=== PATIENT | female | born 2000 | race Two or more races ===

== ENCOUNTER 2023-12-11 20:28 | Emergency (ER) | payer MEDICAID, SELFPAY ==
[2023-12-11 20:35] VITALS: BP 102/60; PULSE 100; RESP 18; TEMP 36.8; O2SAT 98; BMI 24.5
--- NOTE | 2023-12-11 20:36 | ED.GENADULT ---
HPI - General Adult General Chief complaint: Upper Respiratory Symptoms Stated complaint: throat pain Time Seen by Provider: 12/11/23 22:49 Source: patient Mode of arrival: ambulatory Limitations: no limitations History of Present Illness HPI narrative: 23-year-old female previously healthy here with complaints of 5 days of fever with max temp of 101.1 degrees, body aches and sore throat. Patient denies cough, chest pain, shortness of breath, headache, neck pain, neck stiffness, skin rash, vomiting, diarrhea. She reports she has been taking Tylenol and Motrin as well as left over amoxicillin that she had with continued symptoms. Related Data Previous Rx's Medication Instructions Recorded amoxicillin 875 mg-potassium 1 tab PO BID #14 tabs 12/11/23 clavulanate 125 mg tablet Allergies Allergy/AdvReac Type Severity Reaction Status Date / Time No Known Allergies Allergy Verified 12/11/23 20:34 Review of Systems Review of Systems: Yes all other systems are reviewed and are negative Constitutional: Constitutional: Reports no additional constitutional complaints, Reports body ache(s), Denies chills, Reports fever(s), Denies headache(s) and Denies weakness Eyes: Eyes: Reports no additional eye complaints and Denies change in vision ENT: Reports system reviewed and no additional complaints, except as documented, Denies dizziness, Denies headache(s), Denies nasal congestion, Denies nasal discharge, Denies neck pain and Reports sore throat Cardiovascular: Cardiovascular: Reports no additional cardiovascular complaints, Denies chest pain, Denies leg edema and Denies dyspnea Respiratory: Respiratory: Reports no additional respiratory complaints, Denies cough and Denies dyspnea Gastrointestinal: Gastrointestinal: Reports no additional gastrointestinal complaints, Denies abdominal pain, Denies diarrhea, Denies nausea and Denies vomiting Genitourinary: Genitourinary: Reports no additional female genitourinary complaints and Denies urinary incontinence Musculoskeletal: Musculoskeletal: Reports no additional musculoskeletal complaints, Denies back pain, Denies arthralgias, Denies joint swelling, Denies neck pain, Denies numbness and Denies tingling Integumentary/Breasts: Skin/Breast: Reports system reviewed and no additional complaints, except as docu and Denies rash Neurologic: Reports system reviewed and no additional complaints, except as documented, Denies Abnormal speech present, Denies dizziness, Denies headache(s), Denies numbness, Denies tingling and Denies weakness PMF Past Medical History Attestation statement: The following information was validated with the patient. Source: old records reviewed and nursing notes reviewed Social History Social History Advance Directives: No Advance Directives Information Provided: No Physical Exam ED Vital Signs: Vital Signs - 24 hr 12/11/23 20:35 Temperature 98.3 F Pulse Rate 100 Respiratory Rate 18 Blood Pressure 102/60 Pulse Oximetry 98 Oxygen Delivery Method Room Air BMI result Body Mass Index 24.5 Const General: cooperative, healthy appearing, comfortable and no acute distress Orientation/consciousness: patient oriented x3 Limitations: no limitations HENMT Head: Yes normal to inspection Ears: hearing grossly normal bilaterally and TM's normal bilaterally General nose exam: Normal external nose present Face and sinus: Yes normal facial exam Mouth: Normal oral and palatal mucosa present Throat: Yes posterior oropharynx normal, Yes uvula midline and Yes abnormal tonsil (bilateral tonsillar erythema and exudate) Eyes General: appearance normal, both eyes and all related structures Pupils: Equal, round and reactive pupils present Neck Neck: Yes normal visual inspection, Yes full ROM, Yes no lymphadenopathy and Yes no meningeal signs Chest Chest palpation & inspection: normal inspection of the chest Resp Effort & Inspection: normal respiratory effort Auscultation: clear to auscultation bilaterally Cardio Rate: regular rate Rhythm: regular rhythm Peripheral pulses: Peripheral pulses 2+ throughout GI Inspection: Yes normal to inspection Palpation (GI): Soft to palpation and nontender Auscultation: normal bowel sounds Back/Spine/Pelvis Thoracic/Lumbar Spine: thoracic and lumbar spine normal to inspection Skin General skin exam: no rashes or lesions noted Neuro General: patient oriented x3, no meningeal signs, no focal motor deficits and normal sensation to monofilament Cranial nerves: Yes Equal, round and reactive pupils present Cognition (Neuro): normal cognition Speech: No Abnormal speech present Gait exam (Neuro): Normal gait present Motor exam (neuro): 5/5 motor strength present throughout Extrem General: Yes normal to inspection, Yes no pedal edema and Yes no calf tenderness Course Course Course Narrative: RME performed by Shilpa Andrade PA-C. Patient is a 23 year old assigned female at presenting to the emergency department with a sore throat and fever. Detailed physical exam and review of systems are deferred to the executive business coach. Swabs ordered. Patient placed back in the waiting room pending room availability and results. Medical Decision Making Medical Decision Making [facility] Narrative: 23 year-old female previously healthy here with complaints of 5 days of fever with max temp of 101.1 degrees, body aches and sore throat. Patient denies cough, chest pain, shortness of breath, headache, neck pain, neck stiffness, skin rash, vomiting, diarrhea. She reports she has been taking Tylenol and Motrin as well as left over amoxicillin that she had with continued symptoms. +bilateral tonsillar erythema and exudate WIll send testing for flu, covid, strep Differential Diagnosis Differential Diagnoses: The differential diagnosis associated with the presentation includes Strep pharyngitis, viral syndrome Low concern for mononucleosis, RPA, ASPARAGUS BUNCHER, ludwigs angina Admission/Observation Consideration of admission/observation: Escalation of care including admission/observation considered low concern for RPA, ASPARAGUS BUNCHER, ludwigs angina requiring advanced imaging, urgent ENT consultation Lab Data [facility] Lab Attestation statement: I reviewed the patient's lab results. Labs: Lab Results 12/11/23 Range/Units 21:08 COVID-19 (GEETHA) Negative (Negative) COVID-19 Clin Com See Note Influenza Type A (ANAYA) Negative (Negative) Influenza Type B (ANAYA) Negative (Negative) Influenza A & B Note See Note S. pyogenes GrpA ANAYA Negative (Negative) Tests considered The following testing was considered but not selected: low concern for RPA, ASPARAGUS BUNCHER, ludwigs angina requiring advanced imaging, Discharge Plan Discharge Clinical Impression: Pharyngitis Patient Disposition: Home, Self-Care Instructions: Pharyngitis (ED) Additional Instructions: Testing for COVID and flu are negative Increase fluids, rest Alternate Motrin and Tylenol for pain as needed Prescriptions: New amoxicillin-pot clavulanate 875-125 mg tablet 1 tab PO BID Qty: 14 0RF Referrals: Physician,Unknown J [Primary Care Provider] - 1 week
--- NOTE | 2023-12-11 21:12 | MHC.EDTECH ---
Patient brought into triage area,Covid,Flu,and strep swabs obtained and sent to lab,patient brought back to waiting area.
[2023-12-11 21:33] LABS: IDNOW Serial# 08D9AD1C
[2023-12-11 21:34] LABS: COVID-19 Test Negative (Negative); IDNOW Serial# 58CA691E; Strep A Nucleic Acid Negative (Negative)
[2023-12-11 21:36] LABS: IDNOW Serial# 152EDE1D; Influenza A Negative (Negative); Influenza B2 Negative (Negative)
== END 2023-12-11 23:18 | disposition home or self-care (01) ==
PROVIDERS: Physician Assistant Medical; Emergency Provider Emergency Medicine
DX: J02.9 Acute pharyngitis, unspecified (principal); R50.9 Fever, unspecified; Z11.52 Encounter for screening for COVID-19
CPT/HCPCS: 87502; 87635; 87651; 99282; 99283

== ENCOUNTER 2024-09-17 09:38 | Emergency (ER) | payer MEDICAID, SELFPAY ==
--- NOTE | ~2024-09-17 | XR_ITS ---
EXAMINATION: XR CHEST CLINICAL INFORMATION: Cough. COMPARISON: None available. TECHNIQUE: 2 views of the chest were obtained. FINDINGS: Lungs clear. No pleural effusions. Heart and pulmonary vessels normal. XR/XR chest 2V IMPRESSION: No active disease. Electronically signed by: Cade Tobias MD 09/17/2024 11:52 AM EDT
[2024-09-17 09:56] VITALS: BP 108/69; PULSE 78; RESP 16; TEMP 36.5; O2SAT 97; BMI 26.4
[2024-09-17 09:59] VITALS: BP 107/62; PULSE 80; RESP 16; TEMP 36.7; O2SAT 98
--- NOTE | 2024-09-17 10:21 | PC.NURSE ---
describes being sick x 1week. fevers at home 103.9. hacking dry cough noted. unlabroed resp. back pain d/t persistent coughing.
[2024-09-17 11:14] LABS: MANUAL DIFF FLAG NO
[2024-09-17 11:19] LABS: Basophils Absolute Auto 0.1 X10*3/uL (0.0-0.2); Basophils Percent Auto 0.6 % (0-2); Eosinophils Absolute Auto 0.5 X10*3/uL (0.0-0.4); Eosinophils Percent Auto 3.9 % (0-4); Hematocrit 39.3 % (37.0-47.0); Hemoglobin 13.1 g/dl (12.0-16.0); Imm Gran Abs Auto 0.05 X10*3/uL (0.00-0.03); Imm Gran Pct Auto 0.4 % (0.0-0.4); Lymphocytes Absolute Auto 3.2 X10*3/uL (1.2-4.9); Lymphocytes Percent Auto 25.5 % (20-40); Mean Corpuscular HGB Conc 33.3 g/dl (31.0-35.0); Mean Corpuscular Hemoglobin 29.8 pg (27.0-33.0); Mean Corpuscular Volume 89.5 fL (80.0-98.0); Mean Platelet Volume 9.4 fL (9.4-12.3); Monocytes Absolute Auto 1.5 X10*3/uL (0.1-1.2); Monocytes Percent Auto 11.8 % (2-11); Neutrophils Absolute Auto 7.3 x10*3/uL (2.0-8.3); Neutrophils Percent Auto 57.8 % (45-73); Platelet Count 235 X10*3/uL (160-400); Red Blood Count 4.39 X10*6/uL (4.20-5.50); Red Cell Distribution Width 13.2 % (11.0-16.0); White Blood Count 12.7 X10*3/uL (4.8-10.8)
[2024-09-17 11:32] LABS: Alanine Aminotransferase 22 U/L (0-31); Alkaline Phosphatase 78 U/L (39-117); Anion Gap 12 (12-20); Aspartate Amino Transferase 20 U/L (5-31); Bilirubin Total 0.2 mg/dL (0.0-1.0); Blood Urea Nitrogen 10 mg/dL (9-16); Calcium 8.9 mg/dL (8.4-10.2); Carbon Dioxide 29 mmol/L (22-29); Chloride 104 mmol/L (96-108); Creatinine Clr Calc Pharmacy 100.2; Estimated Glomerular Filt Rate > 60; Glucose Random 82 mg/dL (60-115); Potassium 3.7 mmol/L (3.3-5.1); Sodium 141 mmol/L (135-145)
[2024-09-17 11:56] LABS: Influenza A PCR NEGATIVE (Negative); Influenza B PCR NEGATIVE (Negative); Resp Syncy Virus RNA Qual PCR NEGATIVE (Negative); SARS COV2 PCR INHOUSE NEGATIVE (Negative)
[2024-09-17 12:00] VITALS: BP 109/68; PULSE 77; RESP 16; TEMP 37.1; O2SAT 97
[2024-09-17 13:15] LABS: UPreg QC Valid YES; Urine Pregnancy NEGATIVE (NEGATIVE)
[2024-09-17 13:21] LABS: Appearance Urine Clear; Color Urine Yellow; Glucose Urine UA Negative (Negative); Leukocyte Esterase Urine Negative (Negative); Nitrite Urine Negative (Negative); UMIC TRIGGER UACC YES; Urine Blood Large (3+) (Negative); Urine Ketones Negative (Negative); Urine Protein Negative (Neg-Trace)
[2024-09-17 13:22] LABS: Bacteria Urine 1+ (None Seen); Hyaline Casts Urine 0-2 /LPF (0-2); RBC Urine >20 /HPF (0-2); WBC Urine 0-5 /HPF (0-5)
--- NOTE | 2024-09-17 13:27 | ED_ITS ---
HPI - General Adult General Chief complaint: Fever Stated complaint: Fever, diarrhea, cough Time Seen by Provider: 09/17/24 11:50 Source: patient Mode of arrival: ambulatory Limitations: no limitations History of Present Illness ED Provider: DR. Frankel HPI narrative: 23-year-old female came in for evaluation for a multiple symptoms. nonproductive cough for 2 weeks, no sick contacts, no recent travel, Subjective fever, generalized body ache. Nonbloody watery diarrhea since 3-4 days ago, mild abdominal pain. No dysuria, no frequency urination, having her menstrual period now. Related Data Previous Rx's ?Medication ?Instructions ?Recorded amoxicillin 875 mg-potassium 1 tab PO BID #14 tabs 12/11/23 clavulanate 125 mg tablet albuterol sulfate 90 mcg/actuation 2 puff inhalation Q6H PRN 09/17/24 aerosol inhaler shortness of breath or wheezing #8.5 grams azithromycin 250 mg tablet See Rx Instructions PO .COMPLEX #6 09/17/24 (Zithromax Z-Gómez) tabs prednisone 20 mg tablet 20 mg PO BID #10 tabs 09/17/24 Allergies Allergy/AdvReac Type Severity Reaction Status Date / Time No Known Allergies Allergy Verified 09/17/24 09:57 Review of Systems 2 Review of Systems: All other systems are reviewed and are negative Constitutional: Reports as per HPI and Reports no additional constitutional complaints Eyes: Reports as per HPI and Reports no additional eye complaints Reports system reviewed and no additional complaints, except as documented Cardiovascular: Reports as per HPI and Reports no additional cardiovascular complaints Respiratory: Reports as per HPI and Reports no additional respiratory complaints Gastrointestinal: Reports as per HPI and Reports no additional gastrointestinal complaints Genitourinary: Reports no additional female genitourinary complaints Musculoskeletal: Reports no additional musculoskeletal complaints Skin/Breast: Reports system reviewed and no additional complaints, except as docu Psychiatric: Reports no additional psychiatric complaints Endocrine: Reports no additional endocrine complaints Hematologic/Lymphatic: Reports no additional hematologic/lymphatic complaints Allergic/Immunologic: Reports no additional allergic/immunologic complaints Reports system reviewed and no additional complaints, except as documented and Reports Abnormal speech present [facility] Social History Social History Smoked in Last 30 Days: No Use of substances other than those prescribed or required for medical reasons: No Advance Directives: No Advance Directives Information Provided: Yes Do you have a plan to hurt others: No Plan Patient : Yes Physical Exam ED Vital Signs: Vital Signs - 24 hr 09/17/24 09:56 09/17/24 09:59 09/17/24 12:00 Temperature 97.7 F 98.0 F 98.7 F Pulse Rate 78 80 77 Respiratory Rate 16 16 16 Blood Pressure 108/69 107/62 109/68 Pulse Oximetry 97 98 97 Oxygen Delivery Method Room Air Room Air Room Air BMI result Body Mass Index 26.4 Vital signs have been reviewed and appear to be correct. Blood pressure elevated. Heart rate normal. Respiratory rate normal. Temperature normal. Oxygen saturation normal. Appearance: Alert. Oriented X3. No acute distress. Head: Normal external exam. Normocephalic. Atraumatic. No Anderson signs noted. No raccoon eyes noted Eyes: PERRLA. EOMI. Conjunctiva and sclera normal. Eyelids normal. ENT: TM's Normal. Pharynx normal. Uvula midline. Moist mucous membranes. No trismus noted. No drooling noted. No muffled voice noted. Neck: Normal inspection. Neck supple. FROM. No adenopathy. Thyroid Normal. No meningeal signs. No neck mass noted. CVS: Normal heart rate and rhythm. Heart sound normal. No murmurs noted. Pulses normal throughout. Respiratory: No respiratory distress. Painless inspiration. Breath sounds normal. No wheezes/rales/rhonchi noted. Chest nontender. No accessory muscle usage noted or decreased air movement noted. Abdomen: Soft and nontender. Bowel sounds normal in all 4 quadrants. No distention noted. No organomegaly noted. No visible injury noted. Back: No CVA tenderness. Full range of motion noted. Skin: Skin warm and dry. Normal skin color. Normal skin turgor. No rashes/lesions/lacerations noted. Extremities: No lower extremity edema. Extremities exhibit normal range of motion. Extremities nontender. Neuro: Oriented X 3. Cranial nerve exam: II-XII are grossly intact No motor deficit. No sensory deficit. Reflexes normal. Course Reevaluation(s) Reevaluation #1: Coughing likely secondary to bronchitis will start the patient on short course of prednisone and bronchodilator with Z-Gómez. Nonbloody watery diarrhea, patient revealing no dehydration or electrolyte derangement. Patient feels better after IV hydration. Time: 13:35 Medical Decision Making Differential Diagnosis Differential Diagnoses: The differential diagnosis associated with the presentation includes (Pneumonia, pneumothorax, pleural effusion, viral upper respiratory infection, UTI, pyelonephritis, dehydration, electrolyte derangement, severe anemia) Admission/Observation Consideration of admission/observation: Escalation of care including admission/observation considered Lab Data MDM Lab Attestation statement: I reviewed the patient's lab results. 09/17/24 11:10 09/17/24 11:09 Labs: Lab Results 09/17/24 09/17/24 09/17/24 Range/Units 11:09 11:10 13:05 WBC 12.7 H (4.8-10.8) X10*3/uL RBC 4.39 (4.20-5.50) X10*6/uL Hgb 13.1 (12.0-16.0) g/dl Hct 39.3 (37.0-47.0) % MCV 89.5 (80.0-98.0) fL MCH 29.8 (27.0-33.0) pg MCHC 33.3 (31.0-35.0) g/dl RDW 13.2 (11.0-16.0) % Plt Count 235 (160-400) X10*3/uL MPV 9.4 (9.4-12.3) fL Immature Gran % (Auto) 0.4 (0.0-0.4) % Neut % (Auto) 57.8 (45-73) % Lymph % (Auto) 25.5 (20-40) % [place] % (Auto) 11.8 H (2-11) % Eos % (Auto) 3.9 (0-4) % Baso % (Auto) 0.6 (0-2) % Lymph # (Auto) 3.2 (1.2-4.9) X10*3/uL [place] # (Auto) 1.5 H (0.1-1.2) X10*3/uL Eos # (Auto) 0.5 H (0.0-0.4) X10*3/uL Baso # (Auto) 0.1 (0.0-0.2) X10*3/uL Abs Immat Gran (auto) 0.05 H (0.00-0.03) X10*3/uL Absolute Neuts (auto) 7.3 (2.0-8.3) x10*3/uL Absolute Nucleated RBC 0.000 (0.0-0.012) X10*3/uL Nucleated RBC % (auto) 0.0 (0.0-0.2) /100WBC Sodium 141 (135-145) mmol/L Potassium 3.7 (3.3-5.1) mmol/L Chloride 104 (96-108) mmol/L Carbon Dioxide 29 (22-29) mmol/L Anion Gap 12 (12-20) BUN 10 (9-16) mg/dL Creatinine 0.72 (0.5-1.4) mg/dL Estim Creat Clear Calc 100.2 Estimated GFR > 60 Random Glucose 82 (60-115) mg/dL Calcium 8.9 (8.4-10.2) mg/dL Total Bilirubin 0.2 (0.0-1.0) mg/dL AST 20 (5-31) U/L ALT 22 (0-31) U/L Alkaline Phosphatase 78 (39-117) U/L Total Protein 7.0 (6.5-8.0) g/dL Albumin 4.0 (3.5-5.0) g/dL Urine Color Yellow Urine Appearance Clear Urine pH 6.0 (5.0-9.0) Ur Specific [place] 1.020 (1.005-1.025) Urine Protein Negative (Neg-Trace) mg/dL Urine Glucose (UA) Negative (Negative) mg/dL Urine Ketones Negative (Negative) mg/dL Urine Blood Large (3+) H (Negative) Urine Nitrite Negative (Negative) Ur Leukocyte Esterase Negative (Negative) Urine RBC >20 H (0-2) /HPF Urine WBC 0-5 (0-5) /HPF Ur Squamous Epith Cells 11-20 (0-2) /HPF Urine Bacteria 1+ (None Seen) Hyaline Casts 0-2 (0-2) /LPF Urine Test NEGATIVE (NEGATIVE) Influenza Type A (PCR) NEGATIVE (Negative) Influenza Type B (PCR) NEGATIVE (Negative) RSV RNA Qual (PCR) NEGATIVE (Negative) SARS-CoV-2 RNA (RT-PCR) NEGATIVE (Negative) Independent Interpretation I performed an independent interpretation of an: Plain X-Ray ( chest: No acute active disease.) Radiology Impression Discussion of test interpretation with radiology: I have reviewed the radiologist's reading. Discharge Plan Discharge Clinical Impression: Viral infection, Bronchitis Patient Disposition: Home, Self-Care Instructions: Acute Bronchitis (ED) Prescriptions: New azithromycin [Zithromax Z-Gómez] 250 mg tablet See Rx Instructions .ROUTE .COMPLEX Qty: 6 0RF Rx Instructions: For 250 mg dose pack: take 500 mg today (day 1), then 250 mg for 4 days (days 2-5) prednisone 20 mg tablet 20 mg PO BID Qty: 10 0RF albuterol sulfate 90 mcg/actuation HFA aerosol inhaler 2 puff inhalation Q6H PRN (Reason: shortness of breath or wheezing) Qty: 8.5 0RF No Action amoxicillin-pot clavulanate 875-125 mg tablet 1 tab PO BID Qty: 14 0RF Print Language: Cameroonian
[2024-09-17 13:51] VITALS: BP 109/68; PULSE 77; RESP 16; TEMP 37.1; O2SAT 97
== END 2024-09-17 13:51 | disposition home or self-care (01) ==
PROVIDERS: Emergency Provider Emergency Medicine; PCP Nurse Practitioner
DX: B34.9 Viral infection, unspecified (principal); J40 Bronchitis, not specified as acute or chronic; R05.9 Cough, unspecified; R50.9 Fever, unspecified; Z03.818 Encounter for observation for suspected exposure to other biological agents ruled out
CPT/HCPCS: 0241U; 71046; 80053; 81001; 81025; 85025; 99283; 99284

== ENCOUNTER 2025-01-28 18:13 | Emergency (ER) | payer MEDICAID, SELFPAY ==
--- NOTE | 2025-01-28 18:27 | ED_ITS ---
HPI - General Adult General Chief complaint: General Medical Stated complaint: Vomiting/Flu like symptoms Time Seen by Provider: 01/28/25 23:47 Source: patient and family ( Ego) Mode of arrival: ambulatory Limitations: language barrier (Patient's 1st language however she and her speak [place] and [place] [facility] [place] History of Present Illness ED Provider: Dr. Adrian Persaud HPI narrative: 24-year-old female with no significant past medical history who presents emergency department for evaluation of abdominal pain, nausea, vomiting, sore throat, and fatigue x1 day. Patient states that she was not been able to eat or drink secondary to her nausea. She was had 2 episodes of vomiting yesterday and 1 episode of vomiting today. Patient was complaining of a sore throat. She states that she was having pain with swallowing liquids has been had no difficulty swallowing her secretions. Patient had subjective fever and chills. She denied rhinorrhea, cough, chest pain, shortness of breath, diarrhea, frequency, urgency or dysuria. She states she was having abdominal pain and points to her epigastric area. She states the pain is a pressure-like pain which is 6 to 7/10 at its worst. Related Data Previous Rx's ?Medication ?Instructions ?Recorded amoxicillin 875 mg-potassium 1 tab PO BID #14 tabs 12/11/23 clavulanate 125 mg tablet albuterol sulfate 90 mcg/actuation 2 puff inhalation Q6H PRN 09/17/24 aerosol inhaler shortness of breath or wheezing #8.5 grams azithromycin 250 mg tablet See Rx Instructions PO .COMPLEX #6 09/17/24 (Zithromax Z-Gómez) tabs prednisone 20 mg tablet 20 mg PO BID #10 tabs 09/17/24 amoxicillin 875 mg-potassium 1 tab PO Q12H 10 days #20 tabs 01/29/25 clavulanate 125 mg tablet ondansetron 4 mg disintegrating 4 mg PO Q6-8H PRN nausea and 01/29/25 tablet vomiting #14 tabs prednisone 20 mg tablet 40 mg (2 x 20 mg) PO DAILY 5 days 01/29/25 #10 tabs Allergies Allergy/AdvReac Type Severity Reaction Status Date / Time No Known Allergies Allergy Verified 01/28/25 18:29 Review of Systems 2 Review of Systems: Yes all other systems are reviewed and are negative PMFSH Past Medical History [facility] Narrative: Past surgical history: . Social history: She denies tobacco, alcohol and drug use. She was . Her is here in the emergency department with her. Social History Social History Smoked in Last 30 Days: No Use of substances other than those prescribed or required for medical reasons: No Advance Directives: No Advance Directives Information Provided: Yes Patient : No Physical Exam ED Vital Signs: Vital Signs - 24 hr 01/28/25 18:28 01/28/25 21:55 01/28/25 22:28 Temperature 99.0 F 98.6 F 98.9 F Pulse Rate 112 H 109 H 90 Respiratory Rate 16 18 18 Blood Pressure 116/71 112/65 103/62 Pulse Oximetry 98 97 96 Oxygen Delivery Method Room Air Room Air Room Air 01/28/25 22:39 01/29/25 00:10 01/29/25 01:08 Temperature 98.4 F Pulse Rate 100 90 Respiratory Rate 20 16 Blood Pressure 103/62 85/50 L 90/60 Pulse Oximetry 97 98 Oxygen Delivery Method Room Air Room Air Room Air BMI result Body Mass Index 21.5 Vital signs revealed an elevated heart rate otherwise unremarkable Exam: General: Awake, alert in no distress Head: Normocephalic, atraumatic EENT: PERRL, Lids normal, sclera normal, conjunctiva normal, nose normal , ears normal, throat moist membranes, bilateral exudates with bilateral erythema, uvula is midline, no trismus Neck: Supple, jugular digastric and posterior adenopathy which was tender to palpation Lung: breath sounds symmetric, no wheezing, rales or rhonchi Chest: symmetric movement, nontender Heart: regular rate and rhythm, normal S1, S2 no murmurs or rubs Abdomen: soft, moderate epigastric tenderness, nondistended, normal bowel sounds Back: no vertebral tenderness, no CVAT Extremities: no deformities, moves all extremities symmetrically Neuro: Awake, alert, oriented, normal speech, cranial nerves intact, moves all extremities symmetrically Psych: Pleasant, cooperative Course Course Course Narrative: RME, this is a rapid medical exam performed by Filemon Browning please refer to primary provider for complete H&P- 24-year-old female presents for evaluation fevers, chills, vomiting started 2 days ago. Plan for labs, testing and viral swabs. Medications Administered Discontinued Medications Generic Name Dose Route Start Last Admin Trade Name Cynthia PRN Reason Stop Dose Admin Ceftriaxone Sodium 1 gm 01/29/25 01:01 01/29/25 01:08 Ceftriaxone Sodium 1 Gm Vial IVPUSH 01/29/25 01:02 1 gm ONCE ONE Administration Sodium Chloride 1,000 mls @ 999 mls/hr 01/29/25 00:02 01/29/25 00:09 Ns IV 01/29/25 01:02 999 mls/hr .Q1H1M STA Administration Ketorolac Tromethamine 15 mg 01/29/25 00:02 01/29/25 00:12 Ketorolac Tromethamine 15 Mg/Ml Vial IVPUSH 01/29/25 00:03 15 mg ONCE STA Administration Methylprednisolone Sodium Succinate 60 mg 01/29/25 01:01 01/29/25 01:08 Methylprednisolone Sod Succ 125 Mg/2 Ml Vial IVPUSH 01/29/25 01:02 60 mg ONCE ONE Administration Morphine Sulfate 4 mg 01/29/25 01:11 01/29/25 01:20 Morphine Sulfate 4 Mg/Ml Cartridge IVPUSH 01/29/25 01:12 Not Given ONCE STA Protocol Ondansetron HCl 4 mg 01/29/25 00:02 01/29/25 00:12 Ondansetron Hcl 4 Mg/2 Ml Vial IVPUSH 01/29/25 00:03 4 mg ONCE ONE Administration Medical Decision Making Medical Decision Making MDM Narrative: 24-year-old female with no significant past medical history who presents emergency department for evaluation of abdominal pain, nausea, vomiting, sore throat, and fatigue x1 day. Patient states that she was not been able to eat or drink secondary to her nausea. She was had 2 episodes of vomiting yesterday and 1 episode of vomiting today. Patient was complaining of a sore throat. She states that she was having pain with swallowing liquids has been had no difficulty swallowing her secretions. Patient had subjective fever and chills. She denied rhinorrhea, cough, chest pain, shortness of breath, diarrhea, frequency, urgency or dysuria. She states she was having abdominal pain and points to her epigastric area. She states the pain is a pressure-like pain which is 6 to 7/10 at its worst. Vital signs revealed an elevated heart rate otherwise unremarkable. Throat exam revealed bilateral exudates with erythema, no trismus and uvula was midline. Abdominal exam revealed epigastric tenderness. Differential diagnosis: ?Includes but is not limited to viral syndrome, strep pharyngitis, viral pharyngitis, mononucleosis, COVID-19, influenza, RSV, anemia, electrolyte abnormalities Course: 12:08 My independent interpretation patient's laboratory evaluation as follows: WBC elevated 14,700 with 77 neutrophils elevated, 10 lymphocytes, 11 monocytes elevated. Glucose was elevated 116. LFTs were normal. Lipase was normal. Quantitative beta-hCG was below detectable limits. Urinalysis was positive for blood and leukocyte esterase. Microscopic revealed greater than 20 RBCs, 0-5 WBCs, 6-10 squamous cells, no bacteria. COVID-19, influenza, RSV were negative. Rapid strep test was negative Patient was treated with Zofran 4 mg IV, Toradol 15 mg IV and normal saline x1 L IV. 01:26 The patient was mono spot was negative. The patient was pain did improve significantly with the above treatment. At this time I am concerned that the patient may have a bacterial pharyngitis therefore she was given ceftriaxone 1 g IV and Solu-Medrol 60 mg IV. Patient will be discharged home with a prescription for Augmentin 875/125, 1 pill every 12 hours for 10 days. She was also given prescription for Zofran 4 mg ODT Q 6-8 hours as needed for nausea and vomiting. She was advised to take Tylenol for pain. She was given printed and verbal instructions and discharged home. Admission/Observation Consideration of admission/observation: Escalation of care including admission/observation considered (Yes) Lab Data [facility] Lab Attestation statement: I reviewed the patient's lab results. 01/28/25 18:42 01/28/25 18:42 Labs: Lab Results 01/28/25 01/28/25 01/28/25 Range/Units 18:42 22:01 22:06 WBC 14.7 H (4.8-10.8) X10*3/uL RBC 4.34 (4.20-5.50) X10*6/uL Hgb 13.0 (12.0-16.0) g/dl Hct 38.7 (37.0-47.0) % MCV 89.2 (80.0-98.0) fL MCH 30.0 (27.0-33.0) pg MCHC 33.6 (31.0-35.0) g/dl RDW 13.1 (11.0-16.0) % Plt Count 214 (160-400) X10*3/uL MPV 9.6 (9.4-12.3) fL Immature Gran % (Auto) 0.5 H (0.0-0.4) % Neut % (Auto) 77.8 H (45-73) % Lymph % (Auto) 10.2 L (20-40) % [place] % (Auto) 11.1 H (2-11) % Eos % (Auto) 0.1 (0-4) % Baso % (Auto) 0.3 (0-2) % Lymph # (Auto) 1.5 (1.2-4.9) X10*3/uL [place] # (Auto) 1.6 H (0.1-1.2) X10*3/uL Eos # (Auto) 0.0 (0.0-0.4) X10*3/uL Baso # (Auto) 0.0 (0.0-0.2) X10*3/uL Abs Immat Gran (auto) 0.07 H (0.00-0.03) X10*3/uL Absolute Neuts (auto) 11.5 H (2.0-8.3) x10*3/uL Absolute Nucleated RBC 0.000 (0.0-0.012) X10*3/uL Nucleated RBC % (auto) 0.0 (0.0-0.2) /100WBC Smear Tech's Comments VERIFIED Sodium 137 (135-145) mmol/L Potassium 4.1 (3.3-5.1) mmol/L Chloride 107 (96-108) mmol/L Carbon Dioxide 25 (22-29) mmol/L Anion Gap 9 L (12-20) BUN 7 L (9-16) mg/dL Creatinine 0.73 (0.5-1.4) mg/dL Estim Creat Clear Calc 112.2 Estimated GFR > 60 Random Glucose 116 H (60-115) mg/dL Calcium 9.8 D (8.4-10.2) mg/dL Total Bilirubin 0.4 (0.0-1.0) mg/dL AST 20 (5-31) U/L ALT 15 (0-31) U/L Alkaline Phosphatase 76 (39-117) U/L Total Protein 8.4 H (6.5-8.0) g/dL Albumin 4.3 (3.5-5.0) g/dL Lipase 7 L (8-78) U/L Beta HCG, Quant < 2 mIU/mL Urine Color Yellow Urine Appearance Clear Urine pH 7.0 (5.0-9.0) Ur Specific [place] <= 1.005 (1.005-1.025) Urine Protein Trace (Neg-Trace) mg/dL Urine Glucose (UA) Negative (Negative) mg/dL Urine Ketones 15 (Negative) mg/dL Urine Blood Large (3+) H (Negative) Urine Nitrite Negative (Negative) Ur Leukocyte Esterase Trace H (Negative) Urine RBC >20 H (0-2) /HPF Urine WBC 0-5 (0-5) /HPF Ur Squamous Epith Cells 6-10 (0-2) /HPF Urine Bacteria None Seen (None Seen) Hyaline Casts 0-2 (0-2) /LPF Monoscreen (Negative) Influenza Type A (PCR) NEGATIVE (Negative) Influenza Type B (PCR) NEGATIVE (Negative) RSV RNA Qual (PCR) NEGATIVE (Negative) SARS-CoV-2 RNA (RT-PCR) NEGATIVE (Negative) S. pyogenes GrpA ANAYA Negative (Negative) 01/29/25 Range/Units 00:23 WBC (4.8-10.8) X10*3/uL RBC (4.20-5.50) X10*6/uL Hgb (12.0-16.0) g/dl Hct (37.0-47.0) % MCV (80.0-98.0) fL MCH (27.0-33.0) pg MCHC (31.0-35.0) g/dl RDW (11.0-16.0) % Plt Count (160-400) X10*3/uL MPV (9.4-12.3) fL Immature Gran % (Auto) (0.0-0.4) % Neut % (Auto) (45-73) % Lymph % (Auto) (20-40) % [place] % (Auto) (2-11) % Eos % (Auto) (0-4) % Baso % (Auto) (0-2) % Lymph # (Auto) (1.2-4.9) X10*3/uL [place] # (Auto) (0.1-1.2) X10*3/uL Eos # (Auto) (0.0-0.4) X10*3/uL Baso # (Auto) (0.0-0.2) X10*3/uL Abs Immat Gran (auto) (0.00-0.03) X10*3/uL Absolute Neuts (auto) (2.0-8.3) x10*3/uL Absolute Nucleated RBC (0.0-0.012) X10*3/uL Nucleated RBC % (auto) (0.0-0.2) /100WBC Smear Tech's Comments Sodium (135-145) mmol/L Potassium (3.3-5.1) mmol/L Chloride (96-108) mmol/L Carbon Dioxide (22-29) mmol/L Anion Gap (12-20) BUN (9-16) mg/dL Creatinine (0.5-1.4) mg/dL Estim Creat Clear Calc Estimated GFR Random Glucose (60-115) mg/dL Calcium (8.4-10.2) mg/dL Total Bilirubin (0.0-1.0) mg/dL AST (5-31) U/L ALT (0-31) U/L Alkaline Phosphatase (39-117) U/L Total Protein (6.5-8.0) g/dL Albumin (3.5-5.0) g/dL Lipase (8-78) U/L Beta HCG, Quant mIU/mL Urine Color Urine Appearance Urine pH (5.0-9.0) Ur Specific [place] (1.005-1.025) Urine Protein (Neg-Trace) mg/dL Urine Glucose (UA) (Negative) mg/dL Urine Ketones (Negative) mg/dL Urine Blood (Negative) Urine Nitrite (Negative) Ur Leukocyte Esterase (Negative) Urine RBC (0-2) /HPF Urine WBC (0-5) /HPF Ur Squamous Epith Cells (0-2) /HPF Urine Bacteria (None Seen) Hyaline Casts (0-2) /LPF Monoscreen Negative (Negative) Influenza Type A (PCR) (Negative) Influenza Type B (PCR) (Negative) RSV RNA Qual (PCR) (Negative) SARS-CoV-2 RNA (RT-PCR) (Negative) S. pyogenes GrpA ANAYA (Negative) Independent Historian Clinical information obtained from an independent historian. History obtained from or confirmed by: Spouse Prescription Management I considered prescription management with: Antibiotic (Augmentin 875/125) and Other (Antiemetic, Zofran ODT) Discharge Plan Discharge Clinical Impression: Acute bacterial pharyngitis Abdominal pain Qualifiers: Abdominal location: epigastric Qualified Code(s): R10.13 - Epigastric pain Nausea & vomiting Qualifiers: Vomiting type: unspecified Qualified Code(s): R11.2 - Nausea with vomiting, unspecified Patient Disposition: Home, Self-Care Instructions: Pharyngitis (ED) Additional Instructions: Your blood work revealed an elevated white blood cell count otherwise was unremarkable. Your COVID-19, influenza and RSV tests were negative. Your rapid strep test was negative for strep throat. Your mono test for mononucleosis was negative as well. At this time, I am concerned that you have a bacterial throat infection. You received ceftriaxone 1 g IV, this is an antibiotic that will last for 24 hours. Take Augmentin (amoxicillin/clavulanic acid) 875 mg/125 mg, 1 pill every 12 hours for 10 days. You were also treated with Solu-Medrol 60 mg IV, this is a steroid and this will also last for 24 hours and with the help reduce the pain and inflammation in the back of your throat. Take prednisone 20 mg pills, 3 pills once a day for 5 days. This is an oral anti-inflammatory steroid and should help reduce the inflammation in the back of your throat. While you ?are taking prednisone, do not take any NSAIDs (Motrin, Advil, ibuprofen, Aleve, naproxen). You can take Tylenol (acetaminophen) 500 mg pills, 2 pills every 6 hours as needed for pain or fever. Take Zofran ODT 4 mg pills, 1 pill dissolved in your mouth every 8 hours as needed for nausea and vomiting. For the next 24 hours, stay on a FORD diet (bananas, rice, applesauce, tea and toast). Follow-up with your doctor in 2 days. Please return to the emergency department if your symptoms get worse or if you develop any symptoms that are concerning to you. Prescriptions: New amoxicillin-pot clavulanate 875-125 mg tablet 1 tab PO Q12H 10 Days Qty: 20 0RF prednisone 20 mg tablet 40 mg PO DAILY 5 Days Qty: 10 0RF ondansetron 4 mg tablet,disintegrating 4 mg PO Q6-8H PRN (Reason: nausea and vomiting) Qty: 14 0RF No Action amoxicillin-pot clavulanate 875-125 mg tablet 1 tab PO BID Qty: 14 0RF azithromycin [Zithromax Z-Gómez] 250 mg tablet See Rx Instructions .ROUTE .COMPLEX Qty: 6 0RF Rx Instructions: For 250 mg dose pack: take 500 mg today (day 1), then 250 mg for 4 days (days 2-5) prednisone 20 mg tablet 20 mg PO BID Qty: 10 0RF albuterol sulfate 90 mcg/actuation HFA aerosol inhaler 2 puff inhalation Q6H PRN (Reason: shortness of breath or wheezing) Qty: 8.5 0RF Print Language: [place]
[2025-01-28 18:28] VITALS: BP 116/71; PULSE 112; RESP 16; TEMP 37.2; O2SAT 98; BMI 21.5
[2025-01-28 18:59] LABS: Basophils Percent Auto 0.3 % (0-2); Eosinophils Percent Auto 0.1 % (0-4); Hematocrit 38.7 % (37.0-47.0); Imm Gran Abs Auto 0.07 X10*3/uL (0.00-0.03); Imm Gran Pct Auto 0.5 % (0.0-0.4); Lymphocytes Absolute Auto 1.5 X10*3/uL (1.2-4.9); Lymphocytes Percent Auto 10.2 % (20-40); MANUAL DIFF FLAG SCAN; Mean Corpuscular HGB Conc 33.6 g/dl (31.0-35.0); Mean Corpuscular Volume 89.2 fL (80.0-98.0); Mean Platelet Volume 9.6 fL (9.4-12.3); Monocytes Absolute Auto 1.6 X10*3/uL (0.1-1.2); Monocytes Percent Auto 11.1 % (2-11); Neutrophils Absolute Auto 11.5 x10*3/uL (2.0-8.3); Neutrophils Percent Auto 77.8 % (45-73); Platelet Count 214 X10*3/uL (160-400); Red Blood Count 4.34 X10*6/uL (4.20-5.50); Red Cell Distribution Width 13.1 % (11.0-16.0); SCAN SMEAR FLAG 1; White Blood Count 14.7 X10*3/uL (4.8-10.8)
[2025-01-28 19:12] LABS: Alanine Aminotransferase 15 U/L (0-31); Albumin Level 4.3 g/dL (3.5-5.0); Alkaline Phosphatase 76 U/L (39-117); Anion Gap 9 (12-20); Aspartate Amino Transferase 20 U/L (5-31); Bilirubin Total 0.4 mg/dL (0.0-1.0); Blood Urea Nitrogen 7 mg/dL (9-16); Calcium 9.8 mg/dL (8.4-10.2); Carbon Dioxide 25 mmol/L (22-29); Chloride 107 mmol/L (96-108); Creatinine Clr Calc Pharmacy 112.2; Estimated Glomerular Filt Rate > 60; Glucose Random 116 mg/dL (60-115); HCG Quantitative < 2 mIU/mL; Lipase 7 U/L (8-78); Potassium 4.1 mmol/L (3.3-5.1); Sodium 137 mmol/L (135-145); Total Protein 8.4 g/dL (6.5-8.0)
[2025-01-28 19:38] LABS: Influenza A PCR NEGATIVE (Negative); Influenza B PCR NEGATIVE (Negative); Resp Syncy Virus RNA Qual PCR NEGATIVE (Negative); SARS COV2 PCR INHOUSE NEGATIVE (Negative); SLIDE REVIEW VERIFIED
[2025-01-28 21:55] VITALS: BP 112/65; PULSE 109; RESP 18; TEMP 37; O2SAT 97
[2025-01-28 22:13] LABS: Appearance Urine Clear; Color Urine Yellow; Glucose Urine UA Negative (Negative); Leukocyte Esterase Urine Trace (Negative); Nitrite Urine Negative (Negative); Specific Gravity - Urine <= 1.005 (1.005-1.025); UMIC TRIGGER UACC YES; Urine Blood Large (3+) (Negative); Urine Ketones 15 mg/dL (Negative); Urine Protein Trace mg/dL (Neg-Trace)
[2025-01-28 22:18] LABS: Bacteria Urine None Seen (None Seen); Hyaline Casts Urine 0-2 /LPF (0-2); RBC Urine >20 /HPF (0-2); WBC Urine 0-5 /HPF (0-5)
[2025-01-28 22:28] VITALS: BP 103/62; PULSE 90; RESP 18; TEMP 37.2; O2SAT 96
[2025-01-28 22:39] VITALS: BP 103/62; PULSE 100; RESP 20; O2SAT 97
[2025-01-28 22:45] LABS: IDNOW Serial# 6674DD1D; Strep A Nucleic Acid Negative (Negative)
[2025-01-29] MEDS: 0.9 % Sodium Chloride 1,000 ML 999 ML IV (00:09)
[2025-01-29 00:10] VITALS: BP 85/50; PULSE 90; RESP 16; TEMP 36.9; O2SAT 98
[2025-01-29] MEDS: Ketorolac Tromethamine 15 MG/ML VIAL IVPUSH (00:12)
[2025-01-29] MEDS: ondansetron HCL 4 MG/2 ML VIAL IVPUSH (00:12)
[2025-01-29 00:53] LABS: Monotest Negative (Negative)
[2025-01-29 01:08] VITALS: BP 90/60
[2025-01-29] MEDS: cefTRIAXone sodium 1 GM VIAL IVPUSH (01:08)
[2025-01-29] MEDS: methylPREDNISolone Sod Succ 125 MG/2 ML VIAL 60 MG IVPUSH (01:08)
[2025-01-29 01:48] VITALS: BP 102/66; PULSE 88; RESP 15; TEMP 36.9; O2SAT 97; O2SAT 98
== END 2025-01-29 01:50 | disposition home or self-care (01) ==
PROVIDERS: Physician Assistant; Emergency Provider Emergency Medicine Emergency Medical Services; PCP Nurse Practitioner
DX: J02.8 Acute pharyngitis due to other specified organisms (principal); R10.13 Epigastric pain; R11.2 Nausea with vomiting, unspecified; Z03.818 Encounter for observation for suspected exposure to other biological agents ruled out
CPT/HCPCS: 0241U; 36415; 80053; 81001; 83690; 84702; 85025; 86308; 87651; 96361; 96374; 96375; 99284; 99285; J0696; J1885; J2405; J2919

== ENCOUNTER 2025-05-30 18:46 | Emergency (ER) | payer MEDICAID, OTHER, SELFPAY ==
--- NOTE | ~2025-05-30 | CT_ITS ---
CLINICAL HISTORY: RLQ pain CT abdomen and pelvis with contrast Comparison: CT - CT ABDOMEN PELVIS W IV CON - 05/31/25 00:08 EDT Findings: The lung bases are clear. Heart size is normal. No pericardial effusion. Spleen is normal. Hepatic parenchyma is normal. Stomach is normal. Pancreas is normal. Gallbladder is incompletely distended. Adrenal glands are normal. The left kidney is normal. No left renal lithiasis or ureterolithiasis. The right kidney enhances normally. No obstructing renal lithiasis. There is right proximal hydroureter without ureteral lithiasis. No abnormal calcifications or stones at the ureterovesicular junction. Bladder is partially distended. Small bowel is normal. Moderate stool burden in the cecum ascending, and sigmoid colon. The retrocecal and right pelvic appendix is normal. Scattered sigmoid diverticuli without evidence of diverticulitis. Pelvic contents are unremarkable. Prominent parametrial vessels are present. The bones are intact. IMPRESSION: No acute findings. Mild [id number]-left proximal hydroureter without evidence for obstructing ureteral lithiasis. This document has been electronically signed by: Savage Mckeon III, MD PHD on 05/31/2025 02:42:46
--- NOTE | ~2025-05-30 | US_ITS ---
CLINICAL HISTORY: R sided lower abdominal pain, HX of ovarian cysts, --- Additional Notes or Special Instructions: sudden onset of stabbing r sided abd pain, vaginal bleeding. US pelvis transvaginal and transabdominal Indication: Right-sided lower abdominal pain, ovarian cysts, LMP 2 weeks ago, sudden onset right-sided abdominal pain, vaginal bleeding Comparison: None provided Findings: Transabdominal and transvaginal scanning performed. Anteverted uterus measures 8 cm x 3.2 x 4.7 cm. Myometrium is normal. Endometrial thickness measures 0.6 cm. Cervix appears normal. Right ovary measures 3.7 x 1.5 x 1.9 cm. Left ovary measures 3.6 x 2.0 x 3.2 cm. There is a dominant follicle measuring 2.0 cm. No free fluid is demonstrated. Bilateral arterial and venous flow is demonstrated within the ovaries. Normal color Doppler of both ovaries. IMPRESSION: 1. Normal pelvic ultrasound 2. No evidence of ovarian torsion. This document has been electronically signed by: Savage Mckeon III, MD PHD on 05/30/2025 23:19:04
[2025-05-30 19:01] VITALS: BP 113/71; PULSE 67; RESP 16; TEMP 37.1; O2SAT 98; BMI 26.7
--- NOTE | 2025-05-30 19:01 | ED_ITS ---
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 patient states stabbing lower abdominal pain is constant and has been progressing over the last 3 days. She states she has noticed small volume of bright red blood on toilet tissue after urination over this past week. Patient states LMP was 2 weeks ago, patient has implant for contraception, is with a monogamous partner and is not concerned for STIs. Patient reports she saw her PCP yesterday who encouraged her to come to the ED for further evaluation, as patient had right- sided ovarian cysts found during her . Denies chest pain, shortness of breath, bloody/bilious vomiting, black or bloody stool, urinary symptoms. MD complaint: RLQ abdominal pain Onset (ago): week(s) (1) Quality: stabbing Pain Consistency: constant Relieving factors: none Exacerbating factors: movement Associated symptoms: nausea/vomiting Treatments prior to arrival: none Related Data Previous Rx's ?Medication ?Instructions ?Recorded amoxicillin 875 mg-potassium 1 tab PO BID #14 tabs clavulanate 125 mg tablet albuterol sulfate 90 mcg/actuation 2 puff inhalation Q 6H PRN 09/17/24 aerosol inhaler shortness of breath or wheez ing #8.5 grams azithromycin 250 mg tablet See Rx Instructions PO .COM PLEX #6 09/17/24 (Zithromax Z-Gómez) tabs prednisone 20 mg tablet 20 mg PO BID #10 tabs amoxicillin 875 mg-potassium 1 tab PO Q12H 10 days #20 tabs 01/29/25 clavulanate 125 mg tablet ondansetron 4 mg disintegrating 4 mg PO Q6-8H PRN naus ea and 01/29/25 tablet vomiting #14 tabs prednisone 20 mg tablet 40 mg (2 x 20 mg) PO DAILY 5 days 01/29/25 #10 tabs ketorolac 10 mg tablet 10 mg PO Q6H PRN pain 5 days #20 05/31/25 tabs tamsulosin 0.4 mg capsule 0.4 mg PO BEDTIME 7 days #7 caps 05/31/25 metronidazole 500 mg tablet 500 mg PO BID 7 days #14 t abs 06/02/25 Allergies Allergy/AdvReac Type Severity Reaction Status Date / Time No Known Allergies Allergy Verified 05/30/25 19:01 Review of Systems 2 Review of Systems: CONST: Negative for fever, body aches and chills. HENT: Negative for neck pain/stiffness, headache, congestion, sore throat, swelling. EYES: Negative for discharge/pain or vision changes. RESP: Negative for cough/hemoptysis and shortness of breath. CV: Negative chest pain, difficulty breathing, palpitations. ABD: POS RLQ pain, nausea, 2 episdoes of vomiting : Negative increase frequency, dysuria, blood in urine or stool. MUSC: Negative for muscle aches, edema. SKIN: Negative rash, lesions/sores. NEURO: Negative headache, dizziness, weakness. Yes all other systems are reviewed and are negative PMFSH Past Medical History Attestation statement: The following information was validated with the patient. Source: old records reviewed and nursing notes reviewed Physical Exam ED Vital Signs: Vital Signs - 24 hr 05/30/25 19:01 05/30/25 22:02 05/31/25 02:19 Temperature 98.7 F 97.9 F 97.8 F Pulse Rate 67 77 61 Respiratory Rate 16 18 Blood Pressure 113/71 104/64 106/60 Pulse Oximetry 98 100 98 Oxygen Delivery Method Room Air Room Air Room Air BMI result Body Mass Index 26.7 GENERAL APPEARANCE: ?AxOx4, uncomfortable appearing, no acute distress. HEENT: ?NC, AT. MMM. EOMI, clear conjunctiva, oropharynx clear. NECK: ?Supple without lymphadenopathy.? No stiffness or restricted ROM. HEART:? Normal rate and regular rhythm, normal S1/S1, no m/r/g LUNGS:? CTAB, moving air well. No crackles or wheezes are heard. ABDOMEN: soft, no rigidity, moderate tenderness over right adnexal area, negative Zuniga's sign, no rebound tenderness : External genitalia without lesions, or abnormalites. Vaginal vault without mylene blood, cervical os withot clots, blood, or purulent discharge, no CMT. Moderate TTP over R adnexal region, no masses palpated. No uterine abnormalities palpated. BACK: No CVAT, no obvious deformity. EXTREMITIES: ?Without cyanosis, clubbing or edema. NEUROLOGICAL: ?Grossly nonfocal. Alert and oriented, moving all 4 extremities. Observed to ambulate with normal gait. Skin: ?Warm and dry without any rash. Course Course Course Narrative: RME, this is a rapid medical exam performed by Filemon Browning please refer to primary provider for complete H&P- 24 year old female presents for evaluation of lower abdominal pain for the last week. She has also noticed some vaginal bleeding. Denies burning with urination. Plan for labs, and a UA Reevaluation(s) Reevaluation #1: 06/02/25 0918 [place] patient tested negative for gonorrhea, chlamydia, Trichomonas. Positive for bacterial vaginosis. Called and spoke with patient regarding results. Flagyl sent to pharmacy for treatment. Medications Administered Discontinued Medications Generic Name Dose Route Start Last Admin Trade Name Kobeq PRN Reason Stop Dose Admin Iohexol 85 ml 05/31/25 00:25 05/31/25 00:25 Iohexol 350 Mg/Ml 100 Ml Infus..Btl IV 05/31/25 00:26 85 ml ONCE ONE Administration Ketorolac Tromethamine 30 mg 05/31/25 03:06 05/31/25 03:19 Ketorolac Tromethamine 30 Mg/Ml Vial IM 05/31/25 03:07 30 mg ONCE ONE Administration Medical Decision Making Medical Decision Making [facility] Narrative: 24-year-old female without significant medical history presents to the ED due to 1 week of sudden onset stabbing lower abdominal pain. patient states stabbing lower abdominal pain is constant and has been progressing over the last 3 days. She states she has noticed small volume of bright red blood on toilet tissue after urination over this past week. Patient states LMP was 2 weeks ago, patient has implant for contraception, is with a monogamous partner and is not concerned for STIs. Patient reports she saw her PCP yesterday who encouraged her to come to the ED for further evaluation, as patient had right- sided ovarian cysts found during her . VSS, patient is uncomfortable appearing in hospital bed, nontoxic appearing. Labs revealed leukocytosis at 11.1, H&H stable- 12.0/34.8, HCG negative, patient with Nexplanon implant in place, LMP 2 weeks ago- less likely ectopic . UA revealed 1+ urine blood, 6-10 urine RBCs HPF- will obtain transvaginal ultrasound to evaluate for ovarian torsion / ovarian cysts. Course 00:03- Transvaginal ultrasound negative for torsion or ovarian cyst. Vaginal exam does not reveal mylene blood within the vaginal vault or cervical os, no CMT. No CVA tenderness on percussion, but patient states she is uncomfortable around R flank area CT abd/pelvis W/contrast to evaluate for acute abdomen. 03:10- CT abdomen pelvis reveals right proximal hydroureter without ureteral lithiasis, no stones visualized at the UVJ. Patient medicated with 30 mg IM Toradol for pain relief. Patient will be sent home with a week of tamsulosin, and 3 days of Toradol to manage pain. Patient counseled to follow up with her primary care physician, and strict return precautions. Differential Diagnosis Differential Diagnoses: The differential diagnosis associated with the presentation includes Ovarian torsion Ovarian cysts Ruptured ovarian cyst Ectopic Renal stone Admission/Observation Consideration of admission/observation: Escalation of care including admission/observation considered Lab Data MDM Lab Attestation statement: I reviewed the patient's lab results. 05/30/25 19:23 05/30/25 19:23 Labs: Lab Results 05/30/25 05/31/25 Range/Units 19:23 00:00 WBC 11.1 H (4.8-10.8) X10*3/uL RBC 4.04 L (4.20-5.50) X10*6/uL Hgb 12.0 (12.0-16.0) g/dl Hct 34.8 L (37.0-47.0) % MCV 86.1 (80.0-98.0) fL MCH 29.7 (27.0-33.0) pg MCHC 34.5 (31.0-35.0) g/dl RDW 12.5 (11.0-16.0) % Plt Count 266 (160-400) X10*3/uL MPV 9.5 (9.4-12.3) fL Immature Gran % (Auto) 0.3 (0.0-0.4) % Neut % (Auto) 53.1 (45-73) % Lymph % (Auto) 38.0 (20-40) % [place] % (Auto) 6.6 (2-11) % Eos % (Auto) 1.2 (0-4) % Baso % (Auto) 0.8 (0-2) % Lymph # (Auto) 4.2 (1.2-4.9) X10*3/uL [place] # (Auto) 0.7 (0.1-1.2) X10*3/uL Eos # (Auto) 0.1 (0.0-0.4) X10*3/uL Baso # (Auto) 0.1 (0.0-0.2) X10*3/uL Abs Immat Gran (auto) 0.03 (0.00-0.03) X10*3/uL Absolute Neuts (auto) 5.9 (2.0-8.3) x10*3/uL Absolute Nucleated RBC 0.000 (0.0-0.012) X10*3/uL Nucleated RBC % (auto) 0.0 (0.0-0.2) /100WBC Sodium 138 (135-145) mmol/L Potassium 3.7 (3.3-5.1) mmol/L Chloride 105 (96-108) mmol/L Carbon Dioxide 26 (22-29) mmol/L Anion Gap 11 L (12-20) BUN 11 (9-16) mg/dL Creatinine 0.83 (0.5-1.4) mg/dL Estim Creat Clear Calc 86.7 Estimated GFR > 60 Random Glucose 92 (60-115) mg/dL Calcium 9.0 D (8.4-10.2) mg/dL Total Bilirubin 0.1 (0.0-1.0) mg/dL AST 19 (5-31) U/L ALT 17 (0-31) U/L Alkaline Phosphatase 80 (39-117) U/L Total Protein 7.6 (6.5-8.0) g/dL Albumin 4.5 (3.5-5.0) g/dL Lipase 13 (8-78) U/L Beta HCG, Quant < 2 mIU/mL Urine Color Yellow Urine Appearance Clear Urine pH 8.0 (5.0-9.0) Ur Specific [place] 1.010 (1.005-1.025) Urine Protein Trace (Neg-Trace) mg/dL Urine Glucose (UA) Negative (Negative) mg/dL Urine Ketones Negative (Negative) mg/dL Urine Blood Small (1+) H (Negative) Urine Nitrite Negative (Negative) Ur Leukocyte Esterase Negative (Negative) Urine RBC 6-10 H (0-2) /HPF Urine WBC 0-5 (0-5) /HPF Ur Squamous Epith Cells 0-2 (0-2) /HPF Urine Bacteria None Seen (None Seen) Hyaline Casts 0-2 (0-2) /LPF Chlam trachomat DNA PCR NOT DETECTED (Not Detect.) N.gonorrhoeae DNA (PCR) NOT DETECTED (Not Detect.) T. vaginalis (PCR) NOT DETECTED (Not Detect) Bact vaginosis (PCR) POSITIVE A (Negative) C. krusei/glabrata (PCR) NOT DETECTED (Not Detect) Veronika group (PCR) NOT DETECTED (Not Detect) T. vaginalis Amp RNA Cancelled Independent Interpretation I performed an independent interpretation of an: Ultrasound Interpretation: I independently interpreted the ultrasound and agree with the radiologist's findings Radiology Impression Discussion of test interpretation with radiology: I have reviewed the radiologist's reading. Radiologist Impression: Transvaginal US Findings: Transabdominal and transvaginal scanning performed. Anteverted uterus measures 8 cm x 3.2 x 4.7 cm. Myometrium is normal. Endometrial thickness measures 0.6 cm. Cervix appears normal. Right ovary measures 3.7 x 1.5 x 1.9 cm. Left ovary measures 3.6 x 2.0 x 3.2 cm. There is a dominant follicle measuring 2.0 cm. No free fluid is demonstrated. Bilateral arterial and venous flow is demonstrated within the ovaries. Normal color Doppler of both ovaries. IMPRESSION: 1. Normal pelvic ultrasound 2. No evidence of ovarian torsion. This document has been electronically signed by: Savage Mckeon III, MD PHD on 05/30/2025 23:19:04 Dictated By: Savage Mckeon MD Signed By: <Electronically signed by Savage Mckeon MD in OV> 05/30/[address] abdomen/pelvis Findings: The lung bases are clear. Heart size is normal. No pericardial effusion. Spleen is normal. Hepatic parenchyma is normal. Stomach is normal. Pancreas is normal. Gallbladder is incompletely distended. Adrenal glands are normal. The left kidney is normal. No left renal lithiasis or ureterolithiasis. The right kidney enhances normally. No obstructing renal lithiasis. There is right proximal hydroureter without ureteral lithiasis. No abnormal calcifications or stones at the ureterovesicular junction. Bladder is partially distended. Small bowel is normal. Moderate stool burden in the cecum ascending, and sigmoid colon. The retrocecal and right pelvic appendix is normal. Scattered sigmoid diverticuli without evidence of diverticulitis. Pelvic contents are unremarkable. Prominent parametrial vessels are present. The bones are intact. IMPRESSION: No acute findings. Mild pjafr-[id number]-vbnk-left proximal hydroureter without evidence for obstructing ureteral lithiasis. This document has been electronically signed by: Savage Mckeon III, MD PHD on 05/31/2025 02:42:46 Dictated By: Savage Mckeon MD Signed By: <Electronically signed by Savage Mckeon MD in OV> 05/31/25 0244 External Record Review External record reviewed: Inpatient record, Office record and Outpatient record Discharge Plan Discharge Clinical Impression: Hydroureter, right Patient Disposition: Home, Self-Care Instructions: Hydronephrosis (ED) Additional Instructions: You were evaluated in the emergency department today due to lower right abdominal pain. Your blood work showed that you had a mild elevated white blood cell count at 11.1 this indicates that your body is fighting an infection or some type of inflammation. Your transvaginal ultrasound did not show any evidence of ovarian torsion or ovarian cysts. Your test was negative. Your urine test showed a small amount of red blood cells in your urine without evidence of infection. You were evaluated for possible Trichomonas or chlamydia infection which was negative. We are awaiting results for bacterial vaginosis, we will call you if this is positive. Please understand that bacterial vaginosis is not a sexually transmitted infection, this is just an imbalance of the vaginal marquise. The CAT scan of your abdomen and pelvis revealed that you had some inflammation and distention of your ureter which is a to [place] extra kidney to your bladder. This finding along with microscopic blood in your urine suggests that you had a kidney stone that has passed. Inflammation of your ureter can cause you pain and discomfort that you were experiencing. I will prescribe you one- week of a medication called tamsulosin which will help relax the muscle of the ureter and allow for any other stones to pass, and 3 days of an anti- inflammatory medicine called Toradol which will help with inflammation and pain. Please follow up with your primary care provider to ensure improvement. Please return to the emergency department if you develop a fever over 100.4 ?, increased abdominal pain, increased nausea, vomiting, if you continue to see blood in your urine, or any other new/worsening/concerning symptoms Prescriptions: New tamsulosin 0.4 mg capsule 0.4 mg PO BEDTIME 7 Days Qty: 7 0RF ketorolac 10 mg tablet 10 mg PO Q6H PRN (Reason: pain) 5 Days Qty: 20 0RF Rx Instructions: patient received 30mg IM Toradol while in ED to manage pain metronidazole 500 mg tablet 500 mg PO BID 7 Days Qty: 14 0RF No Action amoxicillin-pot clavulanate 875-125 mg tablet 1 tab PO BID Qty: 14 0RF azithromycin [Zithromax Z-Gómez] 250 mg tablet See Rx Instructions .ROUTE .COMPLEX Qty: 6 0RF Rx Instructions: For 250 mg dose pack: take 500 mg today (day 1), then 250 mg for 4 days (days 2-5) prednisone 20 mg tablet 20 mg PO BID Qty: 10 0RF albuterol sulfate 90 mcg/actuation HFA aerosol inhaler 2 puff inhalation Q6H PRN (Reason: shortness of breath or wheezing) Qty: 8.5 0RF amoxicillin-pot clavulanate 875-125 mg tablet 1 tab PO Q12H 10 Days Qty: 20 0RF prednisone 20 mg tablet 40 mg PO DAILY 5 Days Qty: 10 0RF ondansetron 4 mg tablet,disintegrating 4 mg PO Q6-8H PRN (Reason: nausea and vomiting) Qty: 14 0RF Interventions: ED Discharge Assessment Last Done: 05/31/25 03:38 Discharge Date/Time: 05/31/25 03:39 Print Language: Thai
[2025-05-30 19:27] LABS: MANUAL DIFF FLAG NO
[2025-05-30 19:30] LABS: Hematocrit 34.8 % (37.0-47.0); Hemoglobin 12.0 g/dl (12.0-16.0); Imm Gran Abs Auto 0.03 X10*3/uL (0.00-0.03); Imm Gran Pct Auto 0.3 % (0.0-0.4); Lymphocytes Absolute Auto 4.2 X10*3/uL (1.2-4.9); Mean Corpuscular HGB Conc 34.5 g/dl (31.0-35.0); Mean Corpuscular Hemoglobin 29.7 pg (27.0-33.0); Mean Corpuscular Volume 86.1 fL (80.0-98.0); NRBC Abs Auto 0.000 X10*3/uL (0.0-0.012); NRBC Pct Auto 0.0 /100WBC (0.0-0.2); Platelet Count 266 X10*3/uL (160-400); Red Blood Count 4.04 X10*6/uL (4.20-5.50); White Blood Count 11.1 X10*3/uL (4.8-10.8)
[2025-05-30 19:32] LABS: Appearance Urine Clear; Glucose Urine UA Negative (Negative); PH 8.0 (5.0-9.0); Specific Gravity - Urine 1.010 (1.005-1.025); UMIC TRIGGER UACC YES
[2025-05-30 19:50] LABS: Alanine Aminotransferase 17 U/L (0-31); Albumin Level 4.5 g/dL (3.5-5.0); Alkaline Phosphatase 80 U/L (39-117); Anion Gap 11 (12-20); Aspartate Amino Transferase 19 U/L (5-31); Blood Urea Nitrogen 11 mg/dL (9-16); Calcium 9.0 mg/dL (8.4-10.2); Carbon Dioxide 26 mmol/L (22-29); Chloride 105 mmol/L (96-108); Creatinine Clr Calc Pharmacy 86.7; Estimated Glomerular Filt Rate > 60; Lipase 13 U/L (8-78); Potassium 3.7 mmol/L (3.3-5.1); Sodium 138 mmol/L (135-145); Total Protein 7.6 g/dL (6.5-8.0)
[2025-05-30 22:02] VITALS: BP 104/64; PULSE 77; RESP 18; TEMP 36.6; O2SAT 100
[2025-05-31] MEDS: iohexoL 350 MG/ML 100 ML INFUS..BTL 85 ML IV (00:25)
[2025-05-31 02:00] LABS: CT PCR NOT DETECTED (Not Detect.); NG PCR NOT DETECTED (Not Detect.)
[2025-05-31 02:19] VITALS: BP 106/60; PULSE 61; TEMP 36.6; O2SAT 98
--- NOTE | 2025-05-31 02:37 | PC.NURSE ---
Pt resting comfortably on stretcher. Call sanchez in reach and pt understands use.
[2025-05-31 03:30] VITALS: BP 99/58; PULSE 65; RESP 16; TEMP 36.6; O2SAT 99
[2025-05-31 03:38] VITALS: BP 99/58; PULSE 65; RESP 16; TEMP 36.6; O2SAT 99
[2025-05-31 12:08] LABS: Bacterial Vaginosis PCR POSITIVE (Negative); Candida Group PCR NOT DETECTED (Not Detect); Candida glab krusei PCR NOT DETECTED (Not Detect); Trichomonas vaginalis PCR NOT DETECTED (Not Detect)
== END 2025-05-31 03:39 | disposition home or self-care (01) ==
PROVIDERS: Physician Assistant; Emergency Provider Emergency Medicine Emergency Medical Services
DX: N13.4 Hydroureter (principal); N76.0 Acute vaginitis; R10.31 Right lower quadrant pain; R11.2 Nausea with vomiting, unspecified; Z79.899 Other long term (current) drug therapy
CPT/HCPCS: 36415; 74177; 76830; 76856; 80053; 81001; 81515; 83690; 84702; 85025; 87491; 87591; 93975; 96372; 99284; J1885; Q9967

== ENCOUNTER → 2025-05-30 21:54 | Outpatient (BNV) | payer MEDICAID, SELFPAY | PROVIDERS: Emergency Provider Emergency Medicine Emergency Medical Services; Visit Provider Radiology Diagnostic Radiology | DX: R10.31 Right lower quadrant pain (principal) | CPT/HCPCS: 93975 ==

== ENCOUNTER → 2025-05-31 | Outpatient (BNV) | payer MEDICAID, SELFPAY | PROVIDERS: Emergency Provider Emergency Medicine Emergency Medical Services; Visit Provider Radiology Diagnostic Radiology | DX: R10.31 Right lower quadrant pain (principal) | CPT/HCPCS: 74177 ==

== ENCOUNTER 2025-10-20 21:45 | Emergency (ER) | payer MEDICAID, SELFPAY ==
--- OUTSIDE RECORDS SUMMARY | 2023-02-07 06:30 | XMS_ITS | Continuity of Care Document ---
Author Organization [facility] Address [address] [place] [address] Phone Care Team Providers Care Economic Research Analyst Name Role Phone Unavailable Unavailable Unavailable Advance Directives Directive Yes / No Effective Date File Name No Information Encounters Encounter Description Practice Location Reason(s) For Visit Diagnoses Date Provider Providers Copied on Encounter [facility], [address], [place], [id number], [place] tel:[phone] [facility] No Information Jan- No Information Referring Provider: REFERRAL SELF. Family History Family Member Type Diagnosis Age At Onset No Information Payers Payer name Insurance type Covered alliance party ID Authoriza tion(s) Medicaid [id number] Social History Type Description Quantity Date Captured Comments Sex Female Smoking Status No Information Chief Complaint And Reason For Visit No Information History Of Present Illness Encounter Date Complaint History Of Prese nt Illness No Information Instructions Date Instruction Additional Infor mation No Information Assessments Type Assessment Date No Information
--- NOTE | ~2025-10-20 | CT_ITS ---
CLINICAL HISTORY: Flank Pain CT abdomen and pelvis without contrast Comparison: CT/SR - CT ABDOMEN PELVIS W IV CON - 05/31/25 00:12 EDT Findings: The lung bases are clear. Evaluation of the parenchymal organs is limited by the lack of intravenous contrast, however, the liver, gallbladder, spleen, pancreas and adrenal glands are normal in appearance. No hydronephrosis. No ureteral stones. Small focus of scarring in the superior pole of the right kidney with small associated cortical calcification. No bowel obstruction, pneumoperitoneum, or pneumatosis. Pelvic contents unremarkable. Normal appendix. Small volume free fluid in the pelvis. The bones are intact. IMPRESSION: No acute findings. No evidence of obstructive uropathy. No ureteral stones. This document has been electronically signed by: Zechariah Randolph MD on 10/21/2025 01:34:27
--- NOTE | ~2025-10-20 | XR_ITS ---
CLINICAL HISTORY: Cough 1 view chest x-ray Comparison: CR/SR - XR CHEST 2 VIEWS - 09/17/24 10:57 EDT Findings: The lungs are clear. Heart size is normal. No acute fracture. IMPRESSION: 1. No acute findings. This document has been electronically signed by: Zechariah Randolph MD on 10/20/2025 23:55:27
[2025-10-20 21:59] VITALS: BP 112/61; PULSE 120; RESP 18; TEMP 37.9; O2SAT 97; BMI 27.6
--- NOTE | 2025-10-20 22:20 | ED.GENADULT ---
HPI - General Adult General Chief complaint: General Medical Stated complaint: General Medical Time Seen by Provider: 10/20/25 22:11 History of Present Illness ED Provider: Lacey Payan NP HPI narrative: 24-year-old female patient, otherwise healthy presents to the ED complaining of a sore throat and fever ongoing for 3 days. She reports a painful swallow, swollen lymph nodes, and fever as high as 103.5? F. She has taken her temperature orally with a thermometer. Her last dose of Tylenol was 1 hour prior to arrival. She denies any cough, chest pain or pressure, shortness of breath, abdominal pain. Denies urinary complaints including dysuria, hematuria, urgency or frequency. No flank pain. Does have children, but does not report any sick contacts in the home. Related Data Previous Rx's ?Medication ?Instructions ?Recorded amoxicillin 875 mg-potassium 1 tab PO BID #14 tabs 12/11/23 clavulanate 125 mg tablet albuterol sulfate 90 mcg/actuation 2 puff inhalation Q6H PRN 09/17/24 aerosol inhaler shortness of breath or wheezing #8.5 grams azithromycin 250 mg tablet See Rx Instructions PO .COMPLEX #6 09/17/24 (Zithromax Z-Gómez) tabs prednisone 20 mg tablet 20 mg PO BID #10 tabs 09/17/24 amoxicillin 875 mg-potassium 1 tab PO Q12H 10 days #20 tabs 01/29/25 clavulanate 125 mg tablet ondansetron 4 mg disintegrating 4 mg PO Q6-8H PRN nausea and 01/29/25 tablet vomiting #14 tabs prednisone 20 mg tablet 40 mg (2 x 20 mg) PO DAILY 5 days 01/29/25 #10 tabs ketorolac 10 mg tablet 10 mg PO Q6H PRN pain 5 days #20 05/31/25 tabs tamsulosin 0.4 mg capsule 0.4 mg PO BEDTIME 7 days #7 caps 05/31/25 metronidazole 500 mg tablet 500 mg PO BID 7 days #14 tabs 06/02/25 amoxicillin 875 mg-potassium 1 tab PO BID 7 days #14 tabs 10/21/25 clavulanate 125 mg tablet Allergies Allergy/AdvReac Type Severity Reaction Status Date / Time No Known Allergies Allergy Verified 10/20/25 22:01 Review of Systems Review of Systems: ROS is otherwise negative unless mentioned in HPI. COUNTS INCLUDE 234 BEDS AT THE [facility] Social History Social History Alcohol intake: never Smoked in Last 30 Days: No Use of substances other than those prescribed or required for medical reasons: No Advance Directives: No Advance Directives Information Provided: Yes Patient : No Physical Exam ED Exam Exam: Nursing notes and vital signs reviewed. Constitutional: Well-appearing, NAD. Alert. Oriented X3. Eyes: EOMI. ENT: Oropharynx pink, moist. Uvula is midline. Tonsils enlarged 2+ bilaterally without exudate, though erythematous. Neck: Normal inspection. Neck supple. Mild cervical adenopathy bilaterally. CVS: Tachycardic heart rate and normal rhythm. Pulses normal. Respiratory: No respiratory distress. Breath sounds normal. Abdomen: Nondistended. Skin: Skin warm and dry. Normal skin color. Extremities: No lower extremity edema. Neuro: Oriented X 3. No motor deficit. Vital Signs: Vital Signs - 24 hr 10/20/25 21:59 10/21/25 00:31 Temperature 100.3 F 100.0 F Pulse Rate 120 H 104 H Respiratory Rate 18 18 Blood Pressure 112/61 109/59 L Pulse Oximetry 97 99 Oxygen Delivery Method Room Air Room Air BMI result Body Mass Index 27.6 Medications Administered Discontinued Medications Generic Name Dose Route Start Last Admin Trade Name Freq PRN Reason Stop Dose Admin Dexamethasone Sodium Phosphate 10 mg 10/20/25 22:18 10/21/25 00:02 Dexamethasone Sod Phosphate 10 Mg/Ml Vial IVPUSH 10/20/25 22:19 10 mg ONCE ONE Administration Sodium Chloride 1,000 mls @ 999 mls/hr 10/20/25 22:18 10/21/25 01:25 Ns IV 10/20/25 23:18 Infused .Q1H1M ONE Infusion Ibuprofen 800 mg 10/21/25 00:55 10/21/25 01:55 Ibuprofen 800 Mg Tablet PO 10/21/25 00:56 800 mg ONCE ONE Administration Ketorolac Tromethamine 15 mg 10/20/25 22:18 10/21/25 00:01 Ketorolac Tromethamine 15 Mg/Ml Vial IVPUSH 10/20/25 22:19 15 mg ONCE ONE Administration Ondansetron HCl 4 mg 10/21/25 00:55 10/21/25 01:56 Ondansetron Hcl 4 Mg/2 Ml Vial IVPUSH 10/21/25 00:56 4 mg ONCE ONE Administration Medical Decision Making Medical Decision Making [facility] Narrative: 10:21 PM 10/20/2025 (Lacey Payan, PINEDA): Upon my assessment of this patient, she overall appears well. She is mildly tachycardic in the 110s-120s, likely due to acute dehydration, fever. I do not have any clinical suspicion for sepsis at this time. She complains of a sore throat, her tonsils are 2+ bilaterally, erythematous without exudate. Her uvula is midline and therefore I have no clinical suspicion for peritonsillar abscess. We will administer Decadron, Toradol, IV fluids, pending strep swab, viral swabs, basic labs and reassess. 5-- I reassessed this patient, she has not yet received any medications. I inserted a #20 guage peripheral IV into the RAC, and have initiated a fluid bolus. Her temp on recheck is 99.1? F. She tells me that her left flank is now causing some pain, radiating to left groin. We will obtain CT of the abdomen and pelvis without contrast, as urinalysis shows large blood, and she is not on her menstrual cycle. However, no signs of infection. Leukocytosis to 15.8, nonspecific at this time. Pending imaging. 0055-- She has received about 700 cc of the fluid, heart rate has significantly improved and is now around 100. Still no concern for sepsis. She is complaining of some nausea and the left-sided flank pain. CT to my preliminary interpretation does not show any obvious kidney stone. Pending radiology read. If negative, plan to discharge with oral amox to cover her possible throat infection, despite neg. rapid strep. 1999-- heart rate has resolved completely, now in the mid 90s. She reports feeling significant improvement. CTA shows no evidence of any kidney stones. She is not currently on her menstrual cycle per her report, though this may be related to that. She can follow up with Urology outpatient regarding this finding. Given she appears well, there is no indication for additional workup. I will discharge her home with oral amoxicillin-clavulanate to cover for any possibility of underlying strep pharyngitis or chest infection. I recommended she follows up with primary care within the next 1-3 days, she is agreeable. Provided return precautions to the ED. Differential Diagnosis Differential Diagnoses: The differential diagnosis associated with the presentation includes Strep pharyngitis, viral illness, UTI, kidney stone Admission/Observation Consideration of admission/observation: Escalation of care including admission/observation considered (Not indicated) Lab Data MDM Lab Attestation statement: I reviewed the patient's lab results. (Overall reassuring, mild leukocytosis 15.8. Urinalysis with large blood but no signs of infection. Negative viral panel.) 10/20/25 22:45 10/20/25 22:45 Labs: Lab Results 10/20/25 10/20/25 Range/Units 22:22 22:45 WBC 15.8 H (4.8-10.8) X10*3/uL RBC 4.15 L (4.20-5.50) X10*6/uL Hgb 12.3 (12.0-16.0) g/dl Hct 36.0 L (37.0-47.0) % MCV 86.7 (80.0-98.0) fL MCH 29.6 (27.0-33.0) pg MCHC 34.2 (31.0-35.0) g/dl RDW 12.5 (11.0-16.0) % Plt Count 196 D (160-400) X10*3/uL MPV 9.4 (9.4-12.3) fL Immature Gran % (Auto) 0.5 H (0.0-0.4) % Neut % (Auto) 81.9 H (45-73) % Lymph % (Auto) 8.8 L (20-40) % [place] % (Auto) 8.5 (2-11) % Eos % (Auto) 0.0 (0-4) % Baso % (Auto) 0.3 (0-2) % Lymph # (Auto) 1.4 (1.2-4.9) X10*3/uL [place] # (Auto) 1.3 H (0.1-1.2) X10*3/uL Eos # (Auto) 0.0 (0.0-0.4) X10*3/uL Baso # (Auto) 0.1 (0.0-0.2) X10*3/uL Abs Immat Gran (auto) 0.08 H (0.00-0.03) X10*3/uL Absolute Neuts (auto) 12.9 H (2.0-8.3) x10*3/uL Absolute Nucleated RBC 0.000 (0.0-0.012) X10*3/uL Nucleated RBC % (auto) 0.0 (0.0-0.2) /100WBC Sodium 137 (135-145) mmol/L Potassium 3.3 (3.3-5.1) mmol/L Chloride 107 (96-108) mmol/L Carbon Dioxide 23 (22-29) mmol/L Anion Gap 10 L (12-20) BUN 10 (9-16) mg/dL Creatinine 0.67 (0.5-1.4) mg/dL Estim Creat Clear Calc 113.6 Estimated GFR > 60 Random Glucose 122 H (60-115) mg/dL Calcium 9.4 (8.4-10.2) mg/dL Urine Color Yellow Urine Appearance Clear Urine pH 6.5 (5.0-9.0) Ur Specific Salol 1.010 (1.005-1.025) Urine Protein Negative (Neg-Trace) mg/dL Urine Glucose (UA) Negative (Negative) mg/dL Urine Ketones Negative (Negative) mg/dL Urine Blood Large (3+) H (Negative) Urine Nitrite Negative (Negative) Ur Leukocyte Esterase Negative (Negative) Urine RBC >20 H (0-2) /HPF Urine WBC 0-5 (0-5) /HPF Ur Squamous Epith Cells 3-5 (0-2) /HPF Urine Bacteria None Seen (None Seen) Hyaline Casts 0-2 (0-2) /LPF Urine Test NEGATIVE (NEGATIVE) COVID-19 (GEETHA) Negative (Negative) COVID-19 Clin Com See Note Influenza Type A (ANAYA) Negative (Negative) Influenza Type B (ANAYA) Negative (Negative) Influenza A & B Note See Note S. pyogenes GrpA ANAYA Negative (Negative) Independent Interpretation I performed an independent interpretation of an: EKG and CT Scan Interpretation: Rate: 104 Rhythm: ST [place]: normal Normal P waves. Normal REEMA. Normal QRS complex. ST T wave : no dep, elev qTC: 441 prior studies: none available The study has been interpreted contemporaneously by me. I have reviewed the patient's imaging and agree with the radiologist's findings. Radiology Impression Discussion of test interpretation with radiology: I have reviewed the radiologist's reading. Radiologist Impression: XR Chest IMPRESSION: 1. No acute findings. CT Abdomen/Pelvis W IMPRESSION: No acute findings. No evidence of obstructive uropathy. No ureteral stones. Independent Historian None External Record Review External record reviewed: Other (prior ER notes) Social Determinants Patient?s care significantly limited by Social Determinants of Health including: Problems related to primary support group Discharge Plan Discharge Clinical Impression: Viral infection Patient Disposition: Home, Self-Care Instructions: Viral Syndrome (ED) Additional Instructions: As we discussed, your white blood cell count here was mildly elevated. This is likely in the setting of a viral infection. Your lab work overall was reassuring otherwise, and we gave you IV fluids, as well as nausea medication, and steroid medication to help with your discomfort in the throat. Your viral panel was negative for COVID, flu, and your rapid strep test was also negative. X-ray of the chest does not show pneumonia, and a CT of the belly shows no signs of kidney stones. Your heart rate was initially high, it has significantly improved. Your fever has also significantly improved. Please use Tylenol, ibuprofen every 4 hours alternating to help with her discomfort as well as with fevers. I have prescribed you a course of amoxicillin clavulanate, and antibiotic, to treat your throat infection if the strep culture returns positive. Please follow up with your PCP within the next 1-3 days. With any worsening complaints at any time, please return back to the ED for reassessment. Prescriptions: New amoxicillin-pot clavulanate 875-125 mg tablet 1 tab PO BID 7 Days Qty: 14 0RF No Action amoxicillin-pot clavulanate 875-125 mg tablet 1 tab PO BID Qty: 14 0RF azithromycin [Zithromax Z-Gómez] 250 mg tablet See Rx Instructions .ROUTE .COMPLEX Qty: 6 0RF Rx Instructions: For 250 mg dose pack: take 500 mg today (day 1), then 250 mg for 4 days (days 2-5) prednisone 20 mg tablet 20 mg PO BID Qty: 10 0RF albuterol sulfate 90 mcg/actuation HFA aerosol inhaler 2 puff inhalation Q6H PRN (Reason: shortness of breath or wheezing) Qty: 8.5 0RF amoxicillin-pot clavulanate 875-125 mg tablet 1 tab PO Q12H 10 Days Qty: 20 0RF prednisone 20 mg tablet 40 mg PO DAILY 5 Days Qty: 10 0RF ondansetron 4 mg tablet,disintegrating 4 mg PO Q6-8H PRN (Reason: nausea and vomiting) Qty: 14 0RF tamsulosin 0.4 mg capsule 0.4 mg PO BEDTIME 7 Days Qty: 7 0RF ketorolac 10 mg tablet 10 mg PO Q6H PRN (Reason: pain) 5 Days Qty: 20 0RF Rx Instructions: patient received 30mg IM Toradol while in ED to manage pain metronidazole 500 mg tablet 500 mg PO BID 7 Days Qty: 14 0RF Referrals: Karen Clancy APRN [Primary Care Provider, Internal Medicine] Print Language: [place]
--- NOTE | 2025-10-20 22:28 | ECG_ITS ---
Test Reason : TACHYCARDIA Blood Pressure : */* mmHG Vent. Rate : 104 BPM Atrial Rate : 104 BPM P-R Int : 128 ms QRS Dur : 82 ms QT Int : 336 ms P-R-T Axes : 75 74 26 degrees QTcB Int : 441 ms Sinus tachycardia Otherwise normal ECG No previous ECGs available Referred By: Lacey Payan Electronically Signed By: JASON HUTCHINSON
--- OUTSIDE RECORDS SUMMARY | 2025-10-20 22:28 | XMS_ITS | Encounter Summary ---
Author Organization [facility] Address [address] [place] [phone] Phone Care Team Providers Care Client Support Professional Name Role Phone Pcp, Unknown Primary Care Provider Unavailabl e Encounter Details Date Type Department Care Team (Late st Contact Info) Description 03/07/2022 Transcribe Orders [address] [place] [address] Pcp, Unknown Social History Tobacco Use Types Packs/Day Years Used Date Smoking Tobacco: Never Assessed Comments Unknown Sex and Gender Information Value Date Recorded Sex Assigned at Female 05/05/2022 3:29 PM EDT Legal Sex Female 4:21 AM EST Gender Identity Female 05/05/2022 3:29 PM EDT Sexual Orientation Straight 05/05/2022 3: 29 PM EDT documented as of this encounter Plan of Treatment Not on file documented as of this encounter Visit Diagnoses Not on filedocumented in this encounter Care Teams Client Support Professional Relationship Specialty Start Date End Date Pcp, Unknown PCP - General 03/07/22 documented as of this encounter Additional Source Comments The information contained in this document represents components of the legal health record. It is not the complete legal health record.[facility]
--- OUTSIDE RECORDS SUMMARY | 2025-10-20 22:28 | XMS_ITS | Encounter Summary ---
Author Organization [facility] Address [address] [place] [address] Care Team Providers Care Glass Sagger Name Role Phone Christine Clancy Primary Care Provider [phone] Encounter Details Date Type Department Care Team (Late st Contact Info) Description 08/09/2025 Orders Only [facility] Interventional Radiology [address] [place] [phone] Rene Simpson MD [address] [place] [address] [place] [address] Social History Tobacco Use Types Packs/Day Years Used Date Smoking Tobacco: Never Smokeless Tobacco: Never Alcohol Use Standard Drinks/Week Comments Never 0 (1 standard drink = 0.6 oz pur e alcohol) Comments Unknown Sex and Gender Information Value Date Recorded Sex Assigned at Female 02/03/2025 2:35 PM EDT Legal Sex Female 11:48 AM EST Gender Identity Female 10/10/2025 12:09 PM EST Sexual Orientation Not on file documented as of this encounter Plan of Treatment Upcoming Encounters Date Type Department Care Team (Late st Contact Info) Description 11/10/2025 1:30 PM EST Office Visit [facility] - Gastroenterology [address] [place] [phone] Tawana Gastelum MD [address] [place] [phone] 02/27/2026 8:30 AM EDT Appointment [facility] Otol[facility] [address] [place] [phone] Part Time Flexible Clerk: Arash Herrera MD [address] [place] [phone] documented as of this encounter Visit Diagnoses Not on filedocumented in this encounter Care Teams Glass Sagger Relationship Specialty Start Date End Date [place], [place] [address] [facility] [place] [address] PCP - General 02/03/25 documented as of this encounter
--- OUTSIDE RECORDS SUMMARY | 2025-10-20 22:28 | XMS_ITS | Encounter Summary ---
Author Organization [employer] Address [address] [place] [address] [address] [place] [address] Care Team Providers Care Care Center Manager Name Role Phone Christine Clancy CLAIM APPROVER Primary Care Provider [phone] Reason for Visit * Reason Comments Med Refill Encounter Details Date Type Department Care Team ([facility] Contact Info) Description 10/10/2023 Refill [facility] [address] [place] [address] Irma Wahl BDS Social History Tobacco Use Types Packs/Day Years Used Date Smoking Tobacco: Never Smokeless Tobacco: Never Alcohol Use Standard Drinks/Week Comments Never 0 (1 standard drink = 0.6 oz pur e alcohol) PHQ-2 Answer Date Recorded Patient Health Questionnaire-2 Score 0 03/23/2023 Depression Answer Date Recorded Patient Health Questionnaire-2 Score 0 03/23/2023 Comments No Sex and Gender Information Value Date Recorded Sex Assigned at Female 02/01/2023 4:13 PM EDT Legal Sex Female 8:40 PM EDT Gender Identity Female 02/01/2023 4:13 PM EDT Sexual Orientation Straight 03/23/2023 1: 27 PM EDT documented as of this encounter Miscellaneous Notes * Telephone Encounter - Irma Wahl BDS - 10/16/2023 10:01 AM EST Approving, but needs appt for additional refills. documented in this encounter Plan of Treatment Upcoming Encounters Date Type Department Care Team ([facility] Contact Info) Description 10/29/2025 9:40 AM EST Office Visit [facility] MED[facility] [address] [place] [address] Karen Keith MD [address] [place] [address] 12/24/2025 3:20 PM EST Office Visit [facility] MEDICAL [address] [place] [address] [facility] [address] [place] [address] 03/27/2026 9:45 AM EDT Office Visit [facility] Optometry [address] [place] [address] Deepa Dunaway, OD [address] [place] [address] documented as of this encounter Visit Diagnoses Not on filedocumented in this encounter Care Teams Care Center Manager Relationship Specialty Start Date End Date [facility] [address] [place] [address] PCP - General Family Medicine 03/21/23 documented as of this encounter
--- OUTSIDE RECORDS SUMMARY | 2025-10-20 22:28 | XMS_ITS | Clinical Summary ---
Author Organization [facility] Address [address] [place] [address] Care Team Providers Care Drier Belt Conveyor Name Role Phone Christine Clancy Primary Care Provider [phone] Allergies No known active allergies Medications No known medications Encounters Date Type Department Care Team Description 08/12/2025 8:45 AM EDT Procedure visit [facility] [address] [place] [id number] Woo Zhou AUD, [facility] Hearing exam without abnormal findings (Primary Dx); Subjective tinnitus of right ear 08/12/2025 8:26 AM EDT - 08/12/2025 11:59 PM EDT Hospital Encounter [facility] Otolaryngology [facility] [address] [place] [address] Fittings Finisher: Chrissie Bowers, TERESA Arriaga Chronic tonsillitis (Primary Dx) Discharge Disposition: Home or Self Care (01) 08/09/2025 Orders Only [facility] Interventional Radiology [address] [place] [phone] Rene Simpson MD from Last 3 Months Social History Tobacco Use Types Packs/Day Years Used Date Smoking Tobacco: Never Smokeless Tobacco: Never Tobacco Cessation:Counseling Given: Not Answered Alcohol Use Standard Drinks/Week Comments Never 0 (1 standard drink = 0.6 oz pur e alcohol) Comments Unknown Sex and Gender Information Value Date Recorded Sex Assigned at Female 02/03/2025 2:35 PM EDT Legal Sex Female 11:48 AM EST Gender Identity Female 10/10/2025 12:09 PM EST Sexual Orientation Not on file Plan of Treatment Upcoming Encounters Date Type Department Care Team (Late st Contact Info) Description 11/10/2025 1:30 PM EST Office Visit [facility] - Gastroenterology [address] [place] [phone] Tawana Gastelum MD [address] [place], [place] [phone] 02/27/2026 8:30 AM EDT Appointment [facility] Otolaryngology Clinic [address] [place] [address] Fittings Finisher: Arash Herrera MD [address] [place] [address] Health Maintenance Due Date Last Done Comments Pap Smear 2001 Varicella Vaccines (1 of 2 - 13+ 2-dose series) 2014 HPV Vaccines (1 - 3-dose series) 2016 Hepatitis B Vaccines (2 of 3 - 19+ 3-dose series) 04/11/2022 03/14/2022 Depression Screening and Follow-Up 11/20/2024 Social Drivers of Health Annual Screening 11/20/2024 Influenza Vaccine (#1) 2025 , 12/02/2021 COVID-19 Vaccine (2 - 2024-2 6 season) 2025 05/06/2021 Chlamydia Screening 05/29/2026 05/29/2025, 07/19/2024 DTaP,Tdap,and Td Vaccines (2 - Td or Tdap) 10/10/2032 10/10/2022 HIV Screening Completed 03/07/2022, 03/07/2022 Hepatitis C Screening Completed 05/17/2022 Alcohol/Substance Use Screening Completed 05/27/2025 Meningococcal Vaccine Aged Out No tashia jose david eligible based on patient's age to complete this topic Pneumococcal Vaccine: Pediatric (0-5 Years) and At-Risk Patients (6-50 Years) Aged Out No longer eligible based on patient's age to complete this topic Insurance [place] CARE [place]ARE Care Teams Drier Belt Conveyor Relationship Specialty Start Date End Date [place], [place] [address] [place], [place] [address] [place] [address] PCP - General 02/03/25
--- OUTSIDE RECORDS SUMMARY | 2025-10-20 22:28 | XMS_ITS | Clinical Summary ---
Author Organization [facility] Address [address] [place] [address] Phone Care Team Providers Care Inventory Control/Shipping Receiving Name Role Phone Pcp, Unknown Primary Care Provider Unavailabl e Allergies No known active allergies Medications diphenhydramine HCl (UNISOM, DIPHENHYDRAMINE , ORAL) Take by mouth. Activ e clotrimazole-be tamethasone (LOTRISONE) cream Apply topically 2 (two) times a day. 30 g 3 Active levonorgestrel- ethinyl estradiol (AVIANE,ALESSE, LESSINA) 0.1-0.02 mg per tablet Take 1 tablet by mouth daily. To start in 4 weeks 84 tablet 3 3 Active Active Problems Problem Noted Date Diagnosed Date Dysuria 06/21/2022 Vaginal burning 06/21/2022 Immunizations Immunization Administration Dates Next Due Influenza Quadrivalent Preservative Free IM 08/21,12/02/2021 Tdap 10/10/2022 Family History Medical History Relation Comments Hypertension Father Liver cancer Maternal Grandmother Diabetes Paternal Uncle Relation Status Comments Father Maternal Grandmother Paternal Uncle Alive Social History Tobacco Use Types Packs/Day Years Used Date Smoking Tobacco: Former Smokeless Tobacco: Never Tobacco Cessation:Counseling Given: Not Answered Alcohol Use Standard Drinks/Week Comments Not Currently 0 (1 standard drink = 0.6 oz pur e alcohol) Education Answer Date Recorded Are you interested in more education? Not on josefa e 03/18/2023 Are you concerned about learning? Not on file 03/18/2023 No 03/18/2023 No 03/18/2023 Digital Access Answer Date Recorded No 04/18/2023 No 04/18/2023 Reliable internet access at home? Not on file 04/18/2023 Device with a working camera? Not on file Comments No Sex and Gender Information Value Date Recorded Sex Assigned at Female 05/05/2022 3:29 PM EDT Legal Sex Female 4:21 AM EST Gender Identity Female 05/05/2022 3:29 PM EDT Sexual Orientation Straight 05/05/2022 3: 29 PM EDT Last Filed Vital Signs Vital Sign Reading Time Taken Comments Blood Pressure 100/70 01/30/2023 3:03 PM EDT Pulse 88 11/24/2022 3:37 PM EST Temperature 36 C (96.8 F) 11/24/2022 3:37 PM EST Respiratory Rate 18 11/24/2022 3:37 PM EST Oxygen Saturation 96% 11/24/2022 3:37 PM EST Inhaled Oxygen Concentration - - Weight 64 kg (141 lb) 01/30/2023 3:03 PM EDT Height 161.9 cm (5' 3.75 ) 11/24/2022 3:37 PM ES T Body Mass Index 24.39 11/24/2022 3:37 PM EST Plan of Treatment Health Maintenance Due Date Last Done Comments DEPRESSION SCREENING 2013 SMOKING Hx and SMOKELESS TOBACCO SCREENING 2014 HPV VACCINES (1 - 3-dose series) 2016 MENINGOCOCCAL VACCINES (B) (1 of 2 - Standard) 2017 PAP SMEAR 2022 CHLAMYDIA SCREENING 06/20/2023 06/20/2022, 05/16/2022, 04/27/2022, Additional history exists INFLUENZA VACCINE (#1) 2025 09/08/2022, 2021 COVID-19 VACCINE ( - 2024- season) 2025 Adult Td,Tdap Booster 10/10/2032 10/10/2022 HEPATITIS C SCREENING Completed 05/17/2022 , 03/07/2022, 03/07/2022 HIV ONE-TIME SCREENING (18-65 YEARS) Completed 05/17/2022 HEPATITIS A VACCINES Aged Out No long er eligible based on patient's age to complete this topic HIB VACCINES Aged Out No longer eligi ble based on patient's age to complete this topic MENINGOCOCCAL VACCINES (ACWY) Aged Out No longer eligible based on patient's age to complete this topic PNEUMOCOCCAL VACCINES (0-49 years) Aged Out No longer eligible based on patient's age to complete this topic Medical Devices Not on file Procedures Procedure Name Priority Date/Time Associated Diagnosis Comments CHLAMYDIA TRACHOMATIS, NEISSERIA GONORRHOEAE, AND TRICHOMONAS NUCLEIC ACID DETECTION Routine 06/20/2022 11:15 PM EDT Dysuria HEPATITIS C VIRUS ANTIBODY Routine 05/17/2022 10:26 AM EDT Initial obstetric visit in first trimester from Last 3 Months or Most Recently Relevant to Health Maintenance Results * Chlamydia Trachomatis, Neisseria Gonorrhoeae, and Trichomonas nucleic acid detection (06/20/2022 11:15 PM EDT) Chlamydia [facility]ET[facility] Negative Negative [facility] Gonorrhea GEETHA Negative Negative [facility] Trichomonas GEETHA Negative Negative [facility] Cervical 06/20/2022 11:1 5 PM EDT Narrative [facility] - 06/21/2022 1:43 PM EDT Genprobe Source: Cervical us Sade [place] 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 [phone] * Hepatitis C Virus Antibody (05/17/2022 10:26 AM EDT) Hepatitis C Virus Antibody NonReactive NonReactive [facility] 05/17/2022 10:2 6 AM EDT us Pamela Carvajal DO LAB BLOOD ORDERAB[place] [address], [facility] [phone] from Last 3 Months or Most Recently Relevant to Health Maintenance Insurance [employer] [facility] FULL [facility] FULL [place] LIMITED HEALTH SAF[employer] NET FULL Member Subscriber Plan / Payer (Ef fective 2025-Present) Name:Love Gomez Relation to Subscriber:Self Name:Love Gomez Payer ID:Not on file Group ID:Not on file Type:Medicaid Address: [place] [id number] [facility] HEALTH SAFETY NET FULL [employer] LIMITED HEALTH SAFETY NET FULL [employer] LIMITED HEALTH SAFETY NET FULL [employer] HEALTH SAF[employer]Y NET FULL [employer] HEALTH SAF[employer] NET FULL [employer] LIMITED Member Subscriber Plan / Payer (Ef fective 2025-Present) Name:Love Gomez Relation to Subscriber:Self Name:Love Gomez Payer ID:Not on file Group ID:Not on file Type:Medicaid Address: [address] LIMITED [employer] [facility] LIMITED Care Teams Inventory Control/Shipping Receiving Relationship Specialty Start Date End Date Pcp, Unknown PCP - General 03/07/22 Additional Source Comments The information contained in this document represents components of the legal health record. It is not the complete legal health record.[facility]
--- OUTSIDE RECORDS SUMMARY | 2025-10-20 22:28 | XMS_ITS | Encounter Summary ---
Author Organization [employer] Address [address] [place] [address] [address] [place] [address] Care Team Providers Care Caddie Name Role Phone Helen [facility] Primary Care Provider [phone] Reason for Visit * Reason Comments Med Change Request Encounter Details Date Type Department Care Team ([facility] Contact Info) Description 03/29/2024 Refill Janeen [facility] MED[facility] [address] [place] [address] [facility] [address] [place] [address] Gastroesophageal reflux disease, unspecified whether esophagitis present Social History Tobacco Use Types Packs/Day Years Used Date Smoking Tobacco: Never Smokeless Tobacco: Never Alcohol Use Standard Drinks/Week Comments Never 0 (1 standard drink = 0.6 oz pur e alcohol) PHQ-2 Answer Date Recorded Patient Health Questionnaire-2 Score 0 03/23/2023 Depression Answer Date Recorded Patient Health Questionnaire-2 Score 0 03/23/2023 Comments Unknown Sex and Gender Information Value Date Recorded Sex Assigned at Female 02/01/2023 4:13 PM EDT Legal Sex Female 8:40 PM EDT Gender Identity Female 02/01/2023 4:13 PM EDT Sexual Orientation Straight 03/23/2023 1: 27 PM EDT documented as of this encounter Plan of Treatment Upcoming Encounters Date Type Department Care Team ([facility] Contact Info) Description 10/29/2025 9:40 AM EST Office Visit Janeen [facility] MED[facility] [address] [place] [address] Karen Keith MD [address] [place] [address] 12/24/2025 3:20 PM EST Office Visit Janeen [facility] [address] [place] [address] [place], [place] [facility] [address] [place] [address] 03/27/2026 9:45 AM EDT [facility] [address] [place] [address] Deepa Dunaway, HUSSEIN [address] [place] [address] documented as of this encounter Visit Diagnoses Diagnosis Gastroesophageal reflux disease, unspecified whether esophagitis present documented in this encounter Care Teams Caddie Relationship Specialty Start Date End Date [facility] [address] [place] [address] PCP - General Family Medicine 03/21/23 documented as of this encounter
--- OUTSIDE RECORDS SUMMARY | 2025-10-20 22:28 | XMS_ITS | Encounter Summary ---
Author Organization [employer] Address [address] [place] [address] 7 [place] [address] Care Team Providers Care Master Sonar Technician Name Role Phone [facility] Primary Care Provider [phone] Encounter Details Date Type Department Care Team (Late Contact Info) Description 02/03/2023 Abstract Janeen [facility] MED[facility] [address] [place] [address] [facility] [address] [place] [address] Social History Tobacco Use Types Packs/Day Years Used Date Smoking Tobacco: Never Smokeless Tobacco: Never Comments Unknown Sex and Gender Information Value Date Recorded Sex Assigned at Female 02/01/2023 4:13 PM EDT Legal Sex Female 8:40 PM EDT Gender Identity Female 02/01/2023 4:13 PM EDT Sexual Orientation Straight 03/23/2023 1: 27 PM EDT documented as of this encounter Plan of Treatment Upcoming Encounters Date Type Department Care Team (Late Contact Info) Description 10/29/2025 9:40 AM EST Office Visit [facility] MED[facility] [address] [place] [address] Karen Keith MD [address] [place] [address] 12/24/2025 3:20 PM EST Office Visit [facility] MED[facility] [address] [place] [address] [place], [place] [address] [place] [address] 03/27/2026 9:45 AM EDT Office Visit [facility] [address] [place] [address] Deepa Dunaway, OD [address] [place] [address] documented as of this encounter Visit Diagnoses Not on filedocumented in this encounter Care Teams Master Sonar Technician Relationship Specialty Start Date End Date [place], [place] [facility] [address] [place] [address] PCP - General Family Medicine 03/21/23 documented as of this encounter
--- OUTSIDE RECORDS SUMMARY | 2025-10-20 22:28 | XMS_ITS | Encounter Summary ---
Author Organization [facility] Address [address] [place] [address] Phone Care Team Providers Care Regional Loss Prevention Manager Name Role Phone Pcp, Unknown Primary Care Provider Unavailabl e Encounter Details Date Type Department Care Team (Latest Contact Info) Description 03/07/2022 Transcribe Orders [address] [place] [address] Alannah Alvarez MD [address] [place] [address] [email or web address] Abdominal cramps (Primary Dx) Social History Tobacco Use Types Packs/Day Years [...] on file documented as of this encounter Results * HCG (Quantitative, Blood) (03/07/2022 3:34 PM EDT) HCG BETA 0.2 mIU/mL [facility] Comment: Interpretation: FEMALE: Negative: Less than or equal to 1 mIU/mL. 4 Weeks Post Conception: 9.5 - 750 mIU/mL. 12 Weeks Post Conception: [id number] - [id number] mIU/mL. Blood 03/07/2022 3:34 PM EDT 03/07/2022 3:37 PM EDT Alannah Alvarez MD LAB BLOOD BKR ORDERABLE S Final Result [address] [address] * Comprehensive metabolic panel (03/07/2022 3:34 PM EDT) SODIUM 139 133 - 146 mmol/L [facility] POTASSIUM 3.8 3.3 - 5.1 mmol/L [facility] CHLORIDE 103 96 - 108 mmol/L [facility] CO2 22 21 - 35 mmol/L [facility] BUN 11 6 - 19 mg/dL [facility] CREATININE 0.60 0.5 - 1.5 mg/dL [facility] GLUCOSE 86 70 - 99 mg/dL [facility] ALBUMIN 4.7 3.9 - 4.8 g/dL [facility] TOTAL PROTEIN 8.0 6.5 - 8.0 g/dL [facility] CALCIUM 10.0 8.4 - 10.3 mg/dL [facility] ALKALINE PHOSPHATASE 88 39 - 117 U/L [facility] TOTAL BILIRUBIN <0.2 0.0 - 1.2 mg/dL [facility] AST 17 0 - 37 U/L [facility] ALT 13 0 - 40 U/L [facility] GLOBULIN 3.3 1 - 4.8 g/dL [facility] EGFR >120 >59 mL/min/1.7 3m2 [facility] Comment:Estimated glomerular filtration rate calculated using the CKD-EPI refit equation. ANION GAP 18 10 - 20 mmol/L [facility] Blood 03/07/2022 3:34 PM EDT 03/07/2022 3:37 PM EDT Alannah Alvarez MD LAB BLOOD BKR ORDERABLE S Final Result [address] [address] * (ABNORMAL) CBC and differential (03/07/2022 3:34 PM EDT) WBC 9.48 4.00 - 11.00 K/uL [facility] RBC 4.38 3.72 - 5.30 M/uL [facility] HGB 13.1 11.0 - 15.2 g/dL [facility] HCT 39.2 31.6 - 44.1 % [facility] PLT 242 140 - 430 K/uL [facility] MCV 89.5 78.0 - 97.0 fL [facility] MCH 29.9 25.0 - 33.0 pg [facility] MCHC 33.4 32.0 - 36.0 g/dL [facility] RDW 13.0 11.0 - 16.0 % [facility] MPV 10.0 8.4 - 12.8 fl [facility] NRBC 0.00 0 /100 WBCs [facility] ABSOLUTE NRBC 0.00 0 K/uL [facility] DIFF METHOD Auto [facility] NEUTS 52.7 43.0 - 75.0 % [facility] LYMPHS 37.2 18.2 - 47.4 % [facility] MONOS 7.7 4.00 - 11.00 % [facility] EOS 1.4 0.0 - 8.0 % [facility] BASOS 0.8 0.0 - 2.0 % [facility] Granulocytes, immature (%) 0.2 0.0 - 0.9 % [facility] ABSOLUTE NEUTS 4.99 1.80 - 7.70 K/uL [facility] ABSOLUTE LYMPHS 3.53(H) 1.00 - 3.10 K/uL [facility] ABSOLUTE MONOS 0.73 0.20 - 0.80 K/uL [facility] ABSOLUTE EOS 0.13 0.00 - 0.80 K/uL [facility] ABSOLUTE BASOS 0.08 0.00 - 0.09 K/uL [facility] Granulocytes, immature 0.02 0.00 - 0.05 K/uL [facility] Blood 03/07/2022 3:34 PM EDT 03/07/2022 3:37 PM EDT us Alannah Alvarez MD LAB BLOOD BKR ORDERABLE S Final Result [address] [address] * Hepatitis C antibody, qualitative (03/07/2022 3:34 PM EDT) HCV NON-REACTIV E NON-REACTI VE [facility] Blood 03/07/2022 3:34 PM EDT 03/07/2022 3:37 PM EDT us Alannah Alvarez MD LAB BLOOD BKR ORDERABLE S Final Result Performing Organization Address City/[facility]/ZIP Co de Phone Number [address] [address] * Hepatitis B surface antigen (03/07/2022 3:34 PM EDT) HBV SURFACE ANTIGEN NON-REACTI VE NON-REACTI VE [facility] Blood 03/07/2022 3:34 PM EDT 03/07/2022 3:37 PM EDT us Alannah Alvarez MD LAB BLOOD BKR ORDERABLE S Final Result Performing Organization Address City/[facility]/ZIP Co de Phone Number [address] [address] * HIV-1/2 antigen/antibody (03/07/2022 3:34 PM EDT) HIV-1/2 Antigen/Antibo dy NON-REACTI VE NON-REACTI VE [facility] Blood 03/07/2022 3:34 PM EDT 03/07/2022 3:38 PM EDT us Alannah Alvarez MD LAB BLOOD BKR ORDERABLE S Final Result [address] [place] [address] * Hepatitis B surface antibody (03/07/2022 3:34 PM EDT) HBV SURFACE ANTIBODY Negative [facility] Comment: Unvaccinated: Negative Vaccinated: Positive Blood 03/07/2022 3:34 PM EDT 03/07/2022 3:37 PM EDT Alannah Alvarez MD LAB BLOOD BKR ORDERABLE S Final Result [address] [address] documented in this encounter Visit Diagnoses Diagnosis Abdominal cramps- Primary Abdominal pain, unspecified site documented in this encounter Care Teams Regional Loss Prevention Manager Relationship Specialty Start Date End Date Pcp, Unknown PCP - General 03/07/22 documented as of this encounter Additional Source Comments The information contained in this document represents components of the legal health record. It is not the complete legal health record.[facility]
--- OUTSIDE RECORDS SUMMARY | 2025-10-20 22:28 | XMS_ITS | Encounter Summary ---
Author Organization [employer] Address [address] [place] [address] [address] [place] [address] Care Team Providers Care Straight Cutter Machine Name Role Phone [facility] Primary Care Provider [phone] Reason for Visit * Reason Comments Med Change Request Encounter Details Date Type Department Care Team ([facility] Contact Info) Description 03/29/2024 Refill Janeen [facility] MED[facility] [address] [place] [address] [facility] [address] [place] [address] Gastroesophageal reflux disease, unspecified whether esophagitis present [...] Upcoming Encounters Date Type Department Care Team ([facility] Contact Info) Description 10/29/2025 9:40 AM EST Office Visit Janeen [facility] [address] [place] [address] Karen Keith MD [address] [place] [address] 12/24/2025 3:20 PM EST Office Visit Janeen [facility] [address] [place] [address] [place], [place] [facility] [address] [place] [address] 03/27/2026 9:45 AM EDT [facility] [address] [place] [address] Deepa Dunaway, HUSSEIN [address] [place] [address] documented as of this encounter Visit Diagnoses Diagnosis Gastroesophageal reflux disease, unspecified whether esophagitis present documented in this encounter Care Teams Straight Cutter Machine Relationship Specialty Start Date End Date [facility] [address] [place] [address] PCP - General Family Medicine 03/21/23 documented as of this encounter
--- OUTSIDE RECORDS SUMMARY | 2025-10-20 22:28 | XMS_ITS | Clinical Summary ---
Author Organization [employer] Address [address] [facility] 7t [place] [address] Care Team Providers Care Stranding Supervisor Name Role Phone Christine Clancy MELISSA Primary Care Provider [phone] [phone] Allergies Active Allergy Reactions Criticality Noted Date Comments Conj Estrog-Medroxyprogest Rufus Headache 09/26 With aura Medications albuterol 108 (90 Base) MCG/ACT inhaler inhale 2 puffs every 6 hours as needed for shortness of breath or wheezing 09/17/20 24 Active SUMAtriptan (Imitrex) 50 MG tabletIndication s:Intractable migraine with aura with status migrainosus Take 1 tablet (50 mg) by mouth 1 (one) time if needed for migraine. May repeat after 2 hours. 12 tablet 3 09/26/20 25 2025 Active spironolactone (Aldactone) 25 MG tabletIndication s:Pustular acne Take 1 tablet (25 mg) by mouth Once per day. 30 tablet 5 09/26/20 25 2025 Active Clindamycin Phos, Once-Daily, (Clindagel) 1 % gelIndications:P ustular acne Apply 1 Application topically at bedtime. 75 mL 10/02/20 25 Active tretinoin (Retin-A) 0.01 % gelIndications:P ustular acne Apply topically at bedtime. 45 g 5 10/02/20 25 2025 Active Sodium Fluoride (Sodium Fluoride 5000 PPM) 1.1 % paste PLEASE USE PEA SIZE TO BRUSH TWICE DAILY. SPIT, DO NOT RINSE. *NC* 100 g 10/16/20 23 Discontinued norelgestromin-e thinyl estradiol (Ortho-Evra) 150-35 MCG/24HRIndicati ons:Encounter for contraceptive management, unspecified type Apply 1 patch each week for 3 weeks, then remove for 1 week. 3 patch 12 09/04/20 25 2024 Discontinued clindamycin-tret inoin (Ziana) gelIndications:P ustular acne Apply topically at bedtime. 60 g 1 09/26/20 25 2024 Discontinued Active Problems No known active problems Encounters Date Type Department Care Team Description 10/02/[address] [address] [place], [place] Medication Problem 09/26/2025 10:20 AM EST Office Visit [address] [address] Karen Keith MD Intractable migraine with aura with status migrainosus (Primary Dx); Pustular acne; Encounter for contraceptive management, unspecified type 09/26/2025 Telephone [facility] [address] [place] [address] [place], [place] Prior Authorization (ointment) 09/25/2025 4:00 PM EST Office Visit 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 Pelvic pain (Primary Dx); Hematuria, unspecified type; History of kidney stones; Acne, unspecified acne type; Encounter for contraceptive management, unspecified type from Last 3 Months Immunizations Immunization Administration Dates Next Due HPV 9-Valent 03/28/2022 Hep B, adult 03/14/2022 Influenza injectable quadrivalent preservative f ree 09/08/2022,12/02/2021 Keon SARS-CoV-2 Vaccination 05/06/2021 Tdap 10/10/2022 Family History Medical History Relation Name Comments Stomach cancer Maternal Grandmother Relation Name Status Comments Maternal Grandmother Social History Tobacco Use Types Packs/Day Years [...] Orientation Straight 03/23/2023 1: 27 PM EDT Last Filed Vital Signs Vital Sign Reading Time Taken Comments Blood Pressure 117/73 09/26/2025 10:17 AM EST Pulse 66 09/26/2025 10:17 AM EST Temperature 36.8 C (98.3 F) 09/26/2025 10:17 AM EST Respiratory Rate 18 09/26/2025 10:17 AM EST Oxygen Saturation 99% 08/06/2025 2:05 PM EDT Inhaled Oxygen Concentration - - Weight 66.5 kg (146 lb 9.6 oz) 09/26/2025 10:17 AM EST Height 167.6 cm (5' 6 ) 08/06/2025 2:05 PM EDT Body Mass Index 23.66 08/06/2025 2:05 PM EDT Plan of Treatment Upcoming Encounters Date Type Department Care Team (Late st Contact Info) Description 10/29/2025 9:40 AM EST Office Visit [facility] [address] [place] [address] Karen Keith MD [address] [place] [address] 12/24/2025 3:20 PM EST Office Visit [facility] [address] [place] [address] [facility]K [facility] [address] [place] [address] 03/27/2026 9:45 AM EDT [facility] [address] [place] [address] Deepa Dunaway, HUSSEIN [address] [place] [address] Health Maintenance Due Date Last Done Comments SDOH Screening 2001 Disability Screening 2001 Alcohol/Substance Use Screening 2013 Family Planning (PISQ) 2016 Meningococcal B Vaccine (1 of 2 - Standard) 2017 Hepatitis B Vaccines (2 of 3 - 19+ 3-dose series) 04/11/2022 03/14/2022 HPV Vaccines (2 - 3-dose series) 04/25/2022 03/28/2022 Depression Screening 03/23/2024 03/23/2023, 03/23/20 COVID-19 Vaccine (2 - 2024- season) 2025 05/06/2021 Influenza Vaccine (#1) 2025 09/08/2022, 2021 Dental Oral Exam 09/05/2025 03/05/2025, 08/2024, 09/12/2023 Dental Prophylaxis 09/05/2025 03/05/2025, 1 , 11/07/2023 Dental X-Ray: Bitewings 03/06/2026 03/05/20, 08/29/2024, 06/27/2024, Additional history exists Chlamydia and Gonorrhea Screening 05/29/2026 05/29/2025, 07/19/2024, 04/29/2024, Additional history exists Tobacco Screening 08/06/2026 08/06/2025 Pap Smear 04/29/2027 04/29/2024, 04/29/2024 Dental X-Ray: Full Mouth 03/06/2028 025, 09/20/2023, 09/12/2023 DTaP/Tdap/Td Vaccines (2 - Td or Tdap) 10/10/2032 10/10/2022 Zoster Vaccines (1 of 2) 2051 RSV Patients and Patients Aged 60 years or older (1 - 1-dose 75+ series) 2076 HIV Screening Completed 03/07/2022 Hepatitis C Screening Completed 03/07/2022 HIB Vaccines Aged Out No longer eligi ble based on patient's age to complete this topic Hepatitis A Vaccines Aged Out No long er eligible based on patient's age to complete this topic IPV Vaccines Aged Out No longer eligi ble based on patient's age to complete this topic Meningococcal Vaccine Aged Out No tashia jose david eligible based on patient's age to complete this topic Pneumococcal Vaccine: Pediatrics (0 to 5 Years) and At-Risk Patients (6 to 49) Years Aged Out No longer eligible based on patient's age to complete this topic RSV under 20 months Aged Out No longe r eligible based on patient's age to complete this topic Rotavirus Vaccines Aged Out No longer eligible based on patient's age to complete this topic Procedures Procedure Name Priority Date/Time Associated Diagnosis Comments INTRAORAL - PERIAPICAL FIRST RADIOGRAPHIC IMAGE Routine 09/25/2025 4:00 PM EST LIMITED ORAL EVALUATION - PROBLEM FOCUSED Routine 09/25/2025 4:00 PM EST IA REMOVAL NON-BIODEGRADABLE DRUG DELIVERY IMPLANT Routine 09/04/2025 3:48 PM EDT Encounter for removal of subdermal contraceptive implant POCT URINALYSIS DIPSTICK Routine 08/06/2025 2:12 PM EDT Hematuria, unspecified type VAGINITIS PLUS (VG+) WITH VERONIKA (SIX SPECIES), NUSWAB Routine 05/29/2025 12:00 AM EDT Vaginal discharge PROPHYLAXIS - ADULT Routine 03/05/2025 3 :00 PM EDT INTRAORAL - COMPLETE SERIES OF RADIOGRAPHIC IMAGES Routine 03/05/2025 3:00 PM EDT COMPREHENSIVE ORAL EVALUATION - NEW OR ESTABLISHED PATIENT Routine 03/05/2025 3:00 PM EDT GYNECOLOGIC PAP TEST-AGE BASED GUIDELINE CERVICAL CANCER Routine 04/29/2024 12:20 PM EDT Encounter for routine gynecological examination with Papanicolaou smear of cervix Screen for STD (sexually transmitted disease) ZZZ HISTORICAL HEPATITIS C ANTIBODY, QUALITATIVE Routine 03/07/2022 3:34 PM EDT HIV 1/2 ANTIGEN/ANTIBODY, FOURTH GENERATION W/RFL Routine 03/07/2022 3:34 PM EDT from Last 3 Months or Most Recently Relevant to Health Maintenance Results * IA REMOVAL NON-BIODEGRADABLE DRUG DELIVERY IMPLANT (09/04/2025 3:48 PM EDT) Karen Dyer MD - 09/04/2025 3:48 PM EDT Karen Keith MD 09/04/2025 3:49 PM Insertion/Removal of Contraceptive Capsule Date/Time: 09/04/2025 3:48 PM Performed by: Karen Keith MD Authorized by: Karen Keith MD Consent: Consent obtained: Verbal Consent given by: Patient Procedural risks and benefits discussed: Yes Patient questions answered: yes Patient agrees, verbalizes understanding, and wants to proceed: yes Indication: Indication: presence of non-biodegradable drug delivery implant Pre-procedure: Prepped with: alcohol 70% and povidone-iodine Local anesthetic: Lidocaine 1% Procedure: Procedure: Removal Small stab incision was made in arm: yes Left/right: Left Visualization of implant was obtained: yes Site was closed with steri-strips and pressure bandage applied: yes Comments: Complete removal of contraceptive implant performed without complication. us Karen Keith MD IN CLINIC/BEDSIDE ORDERABLES F inal Result * (ABNORMAL) POCT urinalysis dipstick manually resulted (08/06/2025 2:12 PM EDT) Color, UA Light Yellow Clarity, UA Clear Glucose, UA Negative Bilirubin, UA Negative Ketones, UA Negative Spec Grav, UA 1.010 Blood, UA Positive(A) Negative, None Detected pH, UA 6.0 Protein, UA Negative Urobilinogen, UA 4.0 Leukocytes, UA Negative Negative, Rare, Trace Nitrite, UA Negative Negative, None Detected Urine 08/06/2025 2:12 PM EDT [facility] POINT OF CARE TEST ENTER/ EDIT ORDERABLES Final Result * (ABNORMAL) Vaginitis Plus (VG+) With Veronika (Six Species), Nuab (05/29/2025 12:00 AM EDT) Atopobium vaginae High - 2(A) Score [facility] 1 BVAB 2 Low - 0 Score [facility] 1 Megasphaera 1 Low - 0 Score [facility] 1 Comment: Calculate total score by adding the 3 individual bacterial vaginosis (BV) marker scores together. Total score is interpreted as follows: Total score 0-1: Indicates the absence of BV. Total score 2: Indeterminate for BV. Additional clinical data should be evaluated to establish a diagnosis. Total score 3-6: Indicates the presence of BV. Veronika albicans, GEETHA Negative Negative [facility] 1 Veronika glabrata, GEETHA Negative Negative [facility] 1 C parapsilosis/trop icalis Negative Negative [facility] 1 Comment:This assay does not differentiate C. tropicalis and C. parapsilosis. Veronika lusitaniae, GEETHA Negative Negative [facility] 1 Veronika krusei, GEETHA Negative Negative [facility] 1 Trich vag by GEETHA Negative Negative [facility] 1 Chlamydia trachomatis, GEETHA Negative Negative [facility] 1 Neisseria gonorrhoeae, GEETHA Negative Negative [facility] 1 Swab (Vaginal Swab) 05/29/2025 05/29/2025 Comment:Vaginal Swab Delay r e Narrative [facility] 1 - 06/04/2025 12:05 PM EDT Test(s) 442651- Atopobium vaginae; 063383- BVAB 2; 777512- Megasphaera 1 was developed and its performance characteristics determined by [facility]. It has not been cleared or approved by the Food and Drug Administration. Test(s) 368683-Pbrjnst albicans, GEETHA; 213515-Onfjsjk glabrata, GEETHA; 879476-S parapsilosis/tropicalis; 946117-Oymsqea lusitaniae, GEETHA; 592353-Khmolsz krusei, GEETHA was developed and its performance characteristics determined by [facility]. It has not been cleared or approved by the Food and Drug Administration. Resulting Agency Comment Performed at: - Lab[address] [id number] Health Occupations Teacher: Angelia Garcia MD, Phone: [phone] [facility] LAB CYTOLOGY ORDERABLES F inal Result Performing Organization Address City/[facility]/ZIP Co de Phone Number [facility] 1 * Age Guideline for Cervical Cancer and STDs (Aptima??) 011392 (04/29/2024 12:20 PM EDT) Age Guideline ACOG Testing 21-24 [facility] 1 ThinPrep vial (Cervical cells) 04/29/2024 12:20 PM EDT 04/29/2024 Comment:Cervical cells Narrative [facility] 1 - 05/03/2024 12:05 PM EDT Performed at: - [place] [address], [address], [place], [place] [id number] Health Occupations Teacher: Rai Barrera MD, Phone: [phone] Specimen Comment: [id number] Specimen Comment: Source.............Cervix Specimen Comment: No. of containers..01 ThinPrep Vial [facility] LAB CYTOLOGY ORDERABLES F inal Result Performing Organization Address City/[facility]/ZIP Co de Phone Number [facility] 1 * Hepatitis C antibody, qualitative (03/07/2022 3:34 PM EDT) HCV NON-REACTI VE NON-REACTI VE [facility] 03/07/2022 3:34 PM EDT Alannah Alvarez MD HISTORICAL/NON ORDERABLE LABS Fi nal Result [facility] [address] * HIV-1/2 antigen/antibody (03/07/2022 3:34 PM EDT) HIV-1/2 ANTIGEN/ANTIBO DY NON-REACTI VE NON-REACTI [facility] 03/07/2022 3:34 PM EDT us Alannah Alvarez MD LAB BLOOD ORDERABLES Final Resul t Performing Organization Address [facility] Co de Phone Number [facility] [address] from Last 3 Months or Most Recently Relevant to Health Maintenance [place]ENT[place] FULL [place]) [place] DENT[place] - [place] FULL (MEDICAID) Care Teams Stranding Supervisor Relationship Specialty Start Date End Date [facility] [address] [place] [address] PCP - General Family Medicine 03/21/23
--- OUTSIDE RECORDS SUMMARY | 2025-10-20 22:28 | XMS_ITS | Encounter Summary ---
Author Organization [employer] Address [address] [place] [address] 7t [place] [address] Care Team Providers Care Manager Trust Name Role Phone Aston Christine TORRES Primary Care Provider [phone] [phone] Encounter Details Date Type Department Care Team (Late Contact Info) Description 01/01/2024 Abstract [facility] Pediatric Dental [address] [place] [address] Guero Rehman, CAR[place] [address] [place] [address] Social History Tobacco Use Types Packs/Day Years [...] AM EST Office Visit [facility] [address] [place] [address] Karen Keith MD [address] [place], [place] 12/24/2025 3:20 PM EST Office Visit [facility] [address] [place] [address] [place], [place] [address] [place] [address] 03/27/2026 9:45 AM EDT Office Visit [facility] Optometry [address] [place] [address] Deepa Dunaway, OD [address] [place] [address] documented as of this encounter Visit Diagnoses Not on filedocumented in this encounter Care Teams Manager Trust Relationship Specialty Start Date End Date [place], [place] [facility] [address] [place] [address] PCP - General Family Medicine 03/21/23 documented as of this encounter
--- OUTSIDE RECORDS SUMMARY | 2025-10-20 22:28 | XMS_ITS | Encounter Summary ---
Author Organization [employer] Address [address] [place] [address] 7t [place] [address] Care Team Providers Care Medical Supply Technician Name Role Phone Christine Clancy SHIPPING AND RECEIVING SUPERVISOR Primary Care Provider [phone] [phone] Encounter Details Date Type Department Care Team (Late Contact Info) Description 09/21/2024 Orders Only [facility] MEDICAL [address] [place] [address] ProviderMark MD Social History Tobacco Use Types Packs/Day Years [...] Description 10/29/2025 9:40 AM EST Office Visit [facility] MED[facility] [address] [place] [address] Karen Keith MD [address] [place] [address] 12/24/2025 3:20 PM EST Office Visit [facility] [address] [facility] [place] [address] [place], [place] [facility] [address] [place] [address] 03/27/2026 9:45 AM EDT Office Visit [facility] Optometry [address] [place] [address] Deepa Dunaway, OD [address] [place] [address] documented as of this encounter Procedures Procedure Name Priority Date/Time Associated Diagnosis Comments XR CHEST 2 VIEWS Routine 09/17/2024 8:01 AM EDT documented in this encounter Results * XR Chest 2 Views (09/17/2024 8:01 AM EDT) Anatomical Region Laterality Modality Chest Radiographic Maite ging Historical Provider MD MEDINA XR PROCEDURES Final R esult documented in this encounter Visit Diagnoses Not on filedocumented in this encounter Care Teams Medical Supply Technician Relationship Specialty Start Date End Date [facility] [address] [place] [address] PCP - General Family Medicine 03/21/23 documented as of this encounter
--- OUTSIDE RECORDS SUMMARY | 2025-10-20 22:28 | XMS_ITS | Encounter Summary ---
Author Organization [facility] Address [address] [place] [address] Phone Care Team Providers Care Housekeeping Room Attendant Name Role Phone Pcp, Unknown Primary Care Provider Unavailabl e Encounter Details Date Type Department Care Team (Late st Contact Info) Description 04/11/2022 Transcribe Orders Virtual Department [address] [place] [address] Christine Clancy, MORTGAGE LOAN INTERVIEWER [address] [place] [address] Positive test (Primary Dx) Social History Tobacco Use Types [...] as of this encounter Visit Diagnoses Diagnosis Positive test- Primary examination or test, positive result documented in this encounter Care Teams Housekeeping Room Attendant Relationship Specialty Start Date End Date Pcp, Unknown PCP - General 03/07/22 documented as of this encounter Additional Source Comments The information contained in this document represents components of the legal health record. It is not the complete legal health record.[facility]
[2025-10-20 22:39] LABS: IDNOW Serial# 58CA691E; Strep A Nucleic Acid Negative (Negative)
[2025-10-20 22:49] LABS: COVID-19 Test Negative (Negative); IDNOW Serial# 08D9AD1C
[2025-10-20 22:54] LABS: MANUAL DIFF FLAG NO
[2025-10-20 22:55] LABS: Hematocrit 36.0 % (37.0-47.0); Hemoglobin 12.3 g/dl (12.0-16.0); Imm Gran Abs Auto 0.08 X10*3/uL (0.00-0.03); Imm Gran Pct Auto 0.5 % (0.0-0.4); Lymphocytes Absolute Auto 1.4 X10*3/uL (1.2-4.9); Mean Corpuscular HGB Conc 34.2 g/dl (31.0-35.0); Mean Corpuscular Hemoglobin 29.6 pg (27.0-33.0); Mean Corpuscular Volume 86.7 fL (80.0-98.0); NRBC Abs Auto 0.000 X10*3/uL (0.0-0.012); NRBC Pct Auto 0.0 /100WBC (0.0-0.2); Platelet Count 196 X10*3/uL (160-400); Red Blood Count 4.15 X10*6/uL (4.20-5.50); White Blood Count 15.8 X10*3/uL (4.8-10.8)
[2025-10-20 22:58] LABS: Appearance Urine Clear; Glucose Urine UA Negative (Negative); PH 6.5 (5.0-9.0); Specific Gravity - Urine 1.010 (1.005-1.025); UMIC TRIGGER UACC YES
[2025-10-20 22:59] LABS: UPreg QC Valid YES
[2025-10-20 23:07] LABS: Anion Gap 10 (12-20); Blood Urea Nitrogen 10 mg/dL (9-16); Calcium 9.4 mg/dL (8.4-10.2); Carbon Dioxide 23 mmol/L (22-29); Chloride 107 mmol/L (96-108); Creatinine Clr Calc Pharmacy 113.6; Estimated Glomerular Filt Rate > 60; Potassium 3.3 mmol/L (3.3-5.1); Sodium 137 mmol/L (135-145)
[2025-10-21 00:15] LABS: IDNOW Serial# 58CA691E; Influenza B2 Negative (Negative)
[2025-10-21 00:31] VITALS: BP 109/59; PULSE 104; RESP 18; TEMP 37.8; O2SAT 99
[2025-10-21 03:19] VITALS: BP 110/62; PULSE 92; RESP 18; TEMP 37.2; O2SAT 99
== END 2025-10-21 03:19 | disposition home or self-care (01) ==
PROVIDERS: Nurse Practitioner; Emergency Provider Emergency Medicine Emergency Medical Services; PCP Nurse Practitioner
DX: B34.9 Viral infection, unspecified (principal)
CPT/HCPCS: 36415; 71045; 74176; 80048; 81001; 81025; 85025; 87502; 87635; 87651; 93005; 96361; 96374; 96375; 99285; J1100; J1885; J2405

== ENCOUNTER → 2025-10-20 22:28 | Outpatient (BNV) | payer MEDICAID, SELFPAY | PROVIDERS: Emergency Provider Emergency Medicine Emergency Medical Services; PCP Nurse Practitioner; Visit Provider Internal Medicine | DX: R00.0 Tachycardia, unspecified (principal) | CPT/HCPCS: 93010 ==

== ENCOUNTER → 2025-10-20 22:57 | Outpatient (BNV) | payer MEDICAID, SELFPAY | PROVIDERS: Emergency Provider Emergency Medicine Emergency Medical Services; PCP Nurse Practitioner; Visit Provider Radiology Diagnostic Radiology | DX: R05.9 Cough, unspecified (principal) | CPT/HCPCS: 71045 ==

== ENCOUNTER → 2025-10-21 00:03 | Outpatient (BNV) | payer MEDICAID, SELFPAY | PROVIDERS: Emergency Provider Emergency Medicine Emergency Medical Services; PCP Nurse Practitioner; Visit Provider Radiology Diagnostic Radiology | DX: R10.A0 Flank pain, unspecified side (principal) | CPT/HCPCS: 74176 ==